=== PATIENT | male | born 1935 | race Caucasian/White ===

== ENCOUNTER 2016-06-23 13:53 | Inpatient (IN) | payer OTHER ==
[2016-06-23] MEDS ORDERED: SODIUM CHLORIDE 0.9% 1000 ML INFUS.BAG IV PRN (14:29)
[2016-06-23 14:54] LABS: BASOPHIL 0.5 % (0-2.0); EOSINOPHIL 0.4 % (0-4.5); MCH 30.2 pg (25.7-33.7); MCHC 32.4 g/dl (32.0-35.9); MEAN CELL VOLUME 93.2 fl (80-96); MEAN PLT VOLUME 10.4 fl (7.5-11.1); NEUTROPHILS 74.8 % (42.8-82.8); PLATELET COUNT 171 K/MM3 (134-434); RDW 13.4 % (11.9-15.9); WHITE BLOOD COUNT 8.2 K/mm3 (4.0-10.0)
[2016-06-23 15:19] LABS: VENOUS BLOOD GAS HCO3 20.5 meq/L (22-29)
[2016-06-23 15:20] LABS: VENOUS PH 7.25 (7.31-7.41)
[2016-06-23 15:21] LABS: INR 0.99 (0.82-1.09); PROTHROMBIN TIME (PATIENT) 10.9 SEC (9.98-11.88)
[2016-06-23 15:24] LABS: ACTIVATED PTT 27.7 SECONDS (26.9-34.4)
[2016-06-23 15:36] LABS: ALBUMIN 3.3 g/dl (3.4-5.0); CALCIUM 8.8 mg/dL (8.5-10.1); CREATININE 3.3 mg/dL (0.7-1.3)
[2016-06-23 15:40] LABS: BILIRUBIN,TOTAL 0.9 mg/dL (0.2-1.0); TOT PROT 7.2 g/dl (6.4-8.2); TROPONIN I 0.04 ng/ml (0.00-0.05)
[2016-06-23] MEDS ORDERED: INSULIN REGULAR HUMAN 100 UNITS/ML *VIAL IVPUSH ONE (15:54)
--- NOTE | 2016-06-23 16:15 | PDOC ---
History of Present Illness <Karen James - Last Filed: 06/23/16 16:20> - General History Source: EMS, [facility] Records Exam Limitations: Clinical Condition - History of Present Illness Initial Comments: 06/23/16 17:22 80-year-old male with history of advanced Parkinson's disease, dementia, hypertension, CAD, glaucoma, and diabetes brought in by EMS from [facility] for altered mental status and elevated BGM. Patient is unable to cooperate with the detailed history of present illness due to advanced dementia EMS did not provide history of fever/chills/cough/vomiting/diarrhea/melena/ bright red blood per rectum. Patient is a DNR/DNR. REVIEW OF SYSTEMS Unable to obtain. EXAMINATION CONSTITUTIONAL: Awake, unresponsive, nonverbal, frail-appearing; in no apparent distress HEAD: Normocephalic; atraumatic EYES: PERRL; conjunctiva are pink; there is no scleral icterus; ENMT: External appears normal; mucous membranes are dry NECK: Patient is contracted with neck extension; non-tender; no cervical lymphadenopathy CARD: Normal S1, S2; 2/6 se murmur, no rubs, or gallops RESP: Normal chest excursion with respiration; breath sounds clear and equal bilaterally; no wheezes, rhonchi, or rales ABD: Soft, non-distended; non-tender; no palpable organomegaly, no palpable hernias EXT: Bilateral flexion contraction to the upper extremities with a resting left upper extremity tremor SKIN: Warm, dry, no petechia; + stage II sacral decubitus ulcer NEURO: Awake, unresponsive, nonverbal, moans to sternal rub, localizes to painful stimuli with right upper extremity only. <Manuel Stratton - Last Filed: 06/23/16 17:39> - General Chief Complaint: Blood Sugar Problem Stated Complaint: UNRESPONSIVE Time Seen by Provider: 06/23/16 14:20 Past History <Karen James - Last Filed: 06/23/16 16:20> - Psycho/Social/Smoking Cessation Hx Suicidal Ideation: No Smoking History: Unknown if ever smoked <Manuel Stratton - Last Filed: 06/23/16 17:39> - Past Medical History Allergies/Adverse Reactions: Allergies Allergy/AdvReac Type Severity Reaction Status Date / Time No Known Allergies Allergy Verified 06/23/16 16:14 Home Medications: Ambulatory Orders Baclofen [Lioresal -] 10 mg PO BID 06/23/16 Carbidopa/Levodopa [Carbidopa-Levodopa 25-100 Tab] 1 each PO QID 06/23/16 Insulin (Novolog) [Novolog] 8 units SQ HS 06/23/16 Insulin Aspart [Novolog] 100 unit SQ ACHS 06/23/16 Lisinopril [Prinivil] 20 mg PO DAILY 06/23/16 Nifedipine ER [Procardia Xl -] 60 mg PO DAILY 06/23/16 Pantoprazole Sodium [Protonix] 40 mg PO DAILY 06/23/16 Polyethylene Glycol 3350 [Miralax (For Bowel Prep) -] 17 gm PO HS 06/23/16 Silver Sulfadiazine [Silvadene] 1 applic TP DAILY 06/23/16 *Physical Exam - Vital Signs Last Vital Signs Temp Pulse Resp BP Pulse Ox 96.0 F L 75 24 84/44 100 06/23/16 14:00 06/23/16 14:00 06/23/16 14:00 06/23/16 14:00 06/23/16 14:00 <Karen James - Last Filed: 06/23/16 16:20> - Vital Signs Last Vital Signs Temp Pulse Resp BP Pulse Ox 96.0 F L 75 24 84/44 100 06/23/16 14:00 06/23/16 14:00 06/23/16 14:00 06/23/16 14:00 06/23/16 14:00 <Manuel Stratton - Last Filed: 06/23/16 17:39> Heart Score/ECG Review - ECG Intrepretation Comment:: 06/23/16 16:21 Vent rate: 66 bpm VA interval: 142 ms QRS duration: 94 ms Normal sinus rhythm Inferior infarct, age undetermined Anterior infarct, age undetermined <Karen James - Last Filed: 06/23/16 16:20> ED Treatment Course - LABORATORY CBC & Chemistry Diagram: 06/23/16 14:30 06/23/16 14:30 - ADDITIONAL ORDERS Additional order review: Laboratory Results 06/23/16 06/23/16 06/23/16 15:15 14:30 14:30 INR 0.99 PTT (Actin FS) 27.7 VBG pH 7.25 L POC VBG pCO2 48.6 POC VBG pO2 105.0 H Sodium 142 Potassium 4.4 Chloride 106 Carbon Dioxide 21 Anion Gap 15 BUN 73 H Creatinine 3.3 H Creat Clearance w eGFR 18.22 Random Glucose 867 H* Calcium 8.8 Total Bilirubin 0.9 AST 31 ALT 13 Alkaline Phosphatase 109 Creatine Kinase 754 H Troponin I 0.04 Total Protein 7.2 Albumin 3.3 L Blood Type Antibody Screen 06/23/16 14:29 INR PTT (Actin FS) VBG pH POC VBG pCO2 POC VBG pO2 Sodium Potassium Chloride Carbon Dioxide Anion Gap BUN Creatinine Creat Clearance w eGFR Random Glucose Calcium Total Bilirubin AST ALT Alkaline Phosphatase Creatine Kinase Troponin I Total Protein Albumin Blood Type O NEGATIVE Antibody Screen Negative 06/23/16 14:30 RBC 3.83 L MCV 93.2 MCHC 32.4 RDW 13.4 MPV 10.4 Neutrophils % 74.8 Lymphocytes % 18.7 Monocytes % 5.6 Eosinophils % 0.4 Basophils % 0.5 <Karen James - Last Filed: 06/23/16 16:20> - LABORATORY CBC & Chemistry Diagram: 06/23/16 14:30 06/23/16 14:30 - ADDITIONAL ORDERS Additional order review: Laboratory Results 06/23/16 06/23/16 06/23/16 15:15 14:30 14:30 INR 0.99 PTT (Actin FS) 27.7 VBG pH 7.25 L POC VBG pCO2 48.6 POC VBG pO2 105.0 H Sodium 142 Potassium 4.4 Chloride 106 Carbon Dioxide 21 Anion Gap 15 BUN 73 H Creatinine 3.3 H Creat Clearance w eGFR 18.22 Random Glucose 867 H* Calcium 8.8 Total Bilirubin 0.9 AST 31 ALT 13 Alkaline Phosphatase 109 Creatine Kinase 754 H Troponin I 0.04 Total Protein 7.2 Albumin 3.3 L Blood Type Antibody Screen 06/23/16 14:29 INR PTT (Actin FS) VBG pH POC VBG pCO2 POC VBG pO2 Sodium Potassium Chloride Carbon Dioxide Anion Gap BUN Creatinine Creat Clearance w eGFR Random Glucose Calcium Total Bilirubin AST ALT Alkaline Phosphatase Creatine Kinase Troponin I Total Protein Albumin Blood Type O NEGATIVE Antibody Screen Negative 06/23/16 14:30 RBC 3.83 L MCV 93.2 MCHC 32.4 RDW 13.4 MPV 10.4 Neutrophils % 74.8 Lymphocytes % 18.7 Monocytes % 5.6 Eosinophils % 0.4 Basophils % 0.5 - RADIOLOGY Radiology Studies Ordered: Category Date Time Status CHEST X-RAY PORTABLE* [RAD] Stat Radiology 06/23/16 14:29 Completed <Manuel Stratton - Last Filed: 06/23/16 17:39> Medical Decision Making - Medical Decision Making 06/23/16 17:27 Patient is 80-year-old male with multiple comorbidities, advanced dementia brought in from [facility] for elevated blood sugar. In the ER, patient is awake, nonverbal, unresponsive, moaning coherently. Patient's rectal temperature is noted to be 96. There is no evidence of soft tissue infection. Lungs are noted to be clear. Chest x-ray reveals no evidence of infiltrate or effusion. CBC is within normal limit. CMP revealed significantly elevated blood glucose, mildly increased anion gap and bicarbonate of 21. Lactic acid is noted to be 5.6. BUN and creatinine are also elevated without previous values for comparison. I suspect hyperosmolar state with severe dehydration. Patient received a fluid bolus of normal saline-1000 mL. Will initiate a maintenance drip of normal saline at 125 mL an hour. Will also administer insulin iv and sq. There is no indication for initiating of mental and drip is at this time as I do not suspect DKA. Patient will be admitted to [facility] for further hydration. Patient is DNR/DNR. <Manuel Stratton - Last Filed: 06/23/16 17:39> *DC/Admit/Observation/Transfer - Attestations Scribe Attestion: 06/23/16 16:20 Documentation prepared by Karen James, acting as medical educator for Manuel Stratton MD. <Karen James - Last Filed: 06/23/16 16:20> - Discharge Dispostion Admit: Yes <Manuel Stratton - Last Filed: 06/23/16 17:39> Diagnosis at time of Disposition: Diabetes mellitus with hyperosmolar coma, Hyperglycemia, Dehydration - Discharge Dispostion Condition at time of disposition: Fair - Referrals Referrals: Franky Carranza [Primary Care Provider] -
[2016-06-23 16:37] LABS: URINE APPEARANCE SLCLOUDY; URINE BILIRUBIN NEGATIVE (NEGATIVE); URINE BLOOD NEGATIVE (NEGATIVE); URINE COLOR LTYELLOW; URINE GLUCOSE (UA) 3+ (NEGATIVE); URINE KETONE NEGATIVE (NEGATIVE); URINE LEUK ESTERASE NEGATIVE (NEGATIVE); URINE NITRITE NEGATIVE (NEGATIVE); URINE UROBILINOGEN NEGATIVE E.U./dl (0.2-1.0)
[2016-06-23 16:38] LABS: URINE PROTEIN 2+ (NEGATIVE)
[2016-06-23 16:40] LABS: URINE MUCUS RARE; URINE RBC <1 /hpf (0-3); URINE WBC 1 /hpf (3-5)
[2016-06-23] MEDS ORDERED: SODIUM CHLORIDE 1,000 ML IV SCH (17:45)
[2016-06-23 19:01] LABS: CALCIUM 8.9 mg/dL (8.5-10.1); CREATININE 3.5 mg/dL (0.7-1.3)
[2016-06-23] MEDS ORDERED: BACLOFEN 10 MG TABLET (FP) PO SCH (22:00)
--- NOTE | 2016-06-23 22:59 | PDOC ---
ED Treatment Course - LABORATORY CBC & Chemistry Diagram: 06/23/16 14:30 06/23/16 22:40 - ADDITIONAL ORDERS Additional order review: Laboratory Results 06/23/16 06/23/16 06/23/16 17:50 17:50 17:50 INR PTT (Actin FS) VBG pH POC VBG pCO2 POC VBG pO2 Sodium 148 H Potassium 4.1 Chloride 110 H Carbon Dioxide 16 L D Anion Gap 22 H BUN 72 H Creatinine 3.5 H Creat Clearance w eGFR Random Glucose 577 H* D Lactic Acid 8.563 H* Calcium 8.9 Total Bilirubin AST ALT Alkaline Phosphatase Creatine Kinase Creatine Kinase Index CK-MB (CK-2) CK-MB (CK-2) Rel Index Troponin I Total Protein Albumin Urine Color Urine Appearance Urine pH Ur Specific [place] Urine Protein Urine Glucose (UA) Urine Ketones Urine Blood Urine Nitrite Urine Bilirubin Urine Urobilinogen Ur Leukocyte Esterase Urine RBC Urine WBC Ur Epithelial Cells Urine Mucus Blood Type O NEGATIVE Antibody Screen 06/23/16 06/23/16 06/23/16 16:25 15:15 14:30 INR PTT (Actin FS) VBG pH 7.25 L POC VBG pCO2 48.6 POC VBG pO2 105.0 H Sodium Potassium Chloride Carbon Dioxide Anion Gap BUN Creatinine Creat Clearance w eGFR Random Glucose Lactic Acid Calcium Total Bilirubin AST ALT Alkaline Phosphatase Creatine Kinase Creatine Kinase Index CK-MB (CK-2) CK-MB (CK-2) Rel Index Cancelled Troponin I Total Protein Albumin Urine Color Ltyellow Urine Appearance Slcloudy Urine pH 5.0 Ur Specific [place] 1.025 Urine Protein 2+ H Urine Glucose (UA) 3+ H Urine Ketones Negative Urine Blood Negative Urine Nitrite Negative Urine Bilirubin Negative Urine Urobilinogen Negative Ur Leukocyte Esterase Negative Urine RBC <1 Urine WBC 1 Ur Epithelial Cells Rare Urine Mucus Rare Blood Type Antibody Screen 06/23/16 06/23/16 06/23/16 14:30 14:30 14:29 INR 0.99 PTT (Actin FS) 27.7 VBG pH POC VBG pCO2 POC VBG pO2 Sodium 142 Potassium 4.4 Chloride 106 Carbon Dioxide 21 Anion Gap 15 BUN 73 H Creatinine 3.3 H Creat Clearance w eGFR 18.22 Random Glucose 867 H* Lactic Acid Calcium 8.8 Total Bilirubin 0.9 AST 31 ALT 13 Alkaline Phosphatase 109 Creatine Kinase 754 H Creatine Kinase Index 0.5 CK-MB (CK-2) 3.802 H CK-MB (CK-2) Rel Index Troponin I 0.04 Total Protein 7.2 Albumin 3.3 L Urine Color Urine Appearance Urine pH Ur Specific [place] Urine Protein Urine Glucose (UA) Urine Ketones Urine Blood Urine Nitrite Urine Bilirubin Urine Urobilinogen Ur Leukocyte Esterase Urine RBC Urine WBC Ur Epithelial Cells Urine Mucus Blood Type O NEGATIVE Antibody Screen Negative 06/23/16 14:26 INR PTT (Actin FS) VBG pH POC VBG pCO2 POC VBG pO2 Sodium Potassium Chloride Carbon Dioxide Anion Gap BUN Creatinine Creat Clearance w eGFR Random Glucose Lactic Acid 5.787 H* Calcium Total Bilirubin AST ALT Alkaline Phosphatase Creatine Kinase Creatine Kinase Index CK-MB (CK-2) CK-MB (CK-2) Rel Index Troponin I Total Protein Albumin Urine Color Urine Appearance Urine pH Ur Specific [place] Urine Protein Urine Glucose (UA) Urine Ketones Urine Blood Urine Nitrite Urine Bilirubin Urine Urobilinogen Ur Leukocyte Esterase Urine RBC Urine WBC Ur Epithelial Cells Urine Mucus Blood Type Antibody Screen 06/23/16 14:30 RBC 3.83 L MCV 93.2 MCHC 32.4 RDW 13.4 MPV 10.4 Neutrophils % 74.8 Lymphocytes % 18.7 Monocytes % 5.6 Eosinophils % 0.4 Basophils % 0.5 - Medications Given in the ED: ED Medications Discontinued Medications Generic Name Dose Route Start Last Admin Trade Name Freq PRN Reason Stop Dose Admin Insulin Human Regular 10 units 06/23/16 15:54 06/23/16 16:02 Novolin R Vial *Ivpush / Er / Icu Only* IVPUSH 06/23/16 15:55 10 units ONCE ONE Administration Medical Decision Making - Medical Decision Making 06/23/16 22:58 dr. ceja requested icu consultation. case was d/w zhang abernathy from icu - agree with icu adimssion. patient will be upgraded to ICU for further mangaement notified from lab that lactic acid increasing from 5-8 will continue hydration no evidence of sepsis/infectious source pts original labs showed no signs of dka - suspect pts anion gap secondary to sepsis vs dka - will not start insulin gtt for now - will continue hydration Case discussed in detail with admitting physician including history, physical exam and ancillary studies. Admitting physician has assumed care for the patient, will follow all pending diagnostics and will complete the evaluation and treatment. *DC/Admit/Observation/Transfer Diagnosis at time of Disposition: Hyperosmolar nonketotic coma in diabetes, Hyperglycemia, Dehydration - Discharge Dispostion Condition at time of disposition: Critical Admit: Yes
[2016-06-23] MEDS ORDERED: INSULIN DETEMIR 100 UNITS/ML MDV SQ ONE (23:05)
[2016-06-23] MEDS: HEPARIN NA (PORCINE) 5,000 UNITS/ML 1ML VIAL SQ SCH (23:08)
[2016-06-23] MEDS: INSULIN DETEMIR 100 UNITS/ML MDV SQ SCH (23:08)
[2016-06-23] MEDS ORDERED: CARBIDOPA/LEVODOPA 25/100 TABLET (FP) ONE (23:10)
[2016-06-23] MEDS: CARBIDOPA/LEVODOPA 25/100 TABLET (FP) PO SCH (23:15)
--- NOTE | 2016-06-23 23:36 | CONSULT ---
Consult Consult Specialty:: Pulm/CC - History of Present Illness History of Present Illness: Pt is an 80yr old man with PMHx of HTN, CAD, DM, Parkinson's disease, dementia and glaucoma. He presents to the ER from [facility] with CC of AMS and elevated glucose. In the ER pt with serum glucose 867, CK 754, lactic acid 5.787 (--> 8.563) and BUN/Cr 73/3.3. Unable to obtain history due to mental status. Pt assessed in the ER. Pt arousable but nonverbal (baseline unknown), vital signs in chart reviewed. - History Source History Provided By: Medical Record Limitations to Obtaining History: Clinical Condition - Smoking History Smoking history: Unknown if ever smoked Home Medications - Allergies Allergies/Adverse Reactions: Allergies Allergy/AdvReac Type Severity Reaction Status Date / Time No Known Allergies Allergy Verified 06/23/16 16:14 - Home Medications Home Medications: Ambulatory Orders Baclofen [Lioresal -] 10 mg PO BID 06/23/16 Carbidopa/Levodopa [Carbidopa-Levodopa 25-100 Tab] 1 each PO QID 06/23/16 Insulin (Novolog) [Novolog] 8 units SQ HS 06/23/16 Insulin Aspart [Novolog] 100 unit SQ ACHS 06/23/16 Lisinopril [Prinivil] 20 mg PO DAILY 06/23/16 Nifedipine ER [Procardia Xl -] 60 mg PO DAILY 06/23/16 Pantoprazole Sodium [Protonix] 40 mg PO DAILY 06/23/16 Polyethylene Glycol 3350 [Miralax (For Bowel Prep) -] 17 gm PO HS 06/23/16 Silver Sulfadiazine [Silvadene] 1 applic TP DAILY 06/23/16 Family Disease History - Family Disease History Family History: Unable to Obtain Review of Systems Unable to obtain ROS, reason: JOSE Physical Exam Vital Signs: Vital Signs Period Temp Pulse Resp BP Sys/Dumont Pulse Ox Last 24 Hr 96.0 F-96.3 F 63-75 18-24 84-112/44-59 100-100 Intake & Output 06/21/16 06/22/16 06/23/16 06/24/16 23:59 23:59 23:59 23:59 Output Total 200 Balance -200 Weight 140 lb Constitutional: Yes: Thin Eyes: Yes: Other (resistant to exam, no gross abnormality noted) HENT: Yes: Other (dry lips) Neck: Yes: WNL Cardiovascular: Yes: S1, S2 Respiratory: Yes: Diminished, Other (limited exam, no adventitious breath sounds appreciated) Gastrointestinal: Yes: Normal Bowel Sounds ...Rectal Exam: Yes: Deferred Renal/: Yes: Marquez Present (yellow output) Musculoskeletal: Yes: Other (some contraction) Extremities: Yes: Other (bilateral heel lifts) Edema: No Peripheral Pulses WNL: Yes (+2 bilateral pedal pulses) Integumentary: Yes: Other (appears dry) Neurological: Yes: Unresponsive, Other (arousable, nonverbal) Labs: Abnormal Lab Results 06/23/16 06/23/16 06/23/16 14:26 14:30 14:30 RBC 3.83 L Hgb 11.6 L VBG pH POC VBG pO2 Sodium Chloride Carbon Dioxide Anion Gap BUN 73 H Creatinine 3.3 H Random Glucose 867 H* Lactic Acid 5.787 H* Creatine Kinase 754 H CK-MB (CK-2) 3.802 H Albumin 3.3 L Urine Protein Urine Glucose (UA) 06/23/16 06/23/16 06/23/16 15:15 16:25 17:50 RBC Hgb VBG pH 7.25 L POC VBG pO2 105.0 H Sodium 148 H Chloride 110 H Carbon Dioxide 16 L D Anion Gap 22 H BUN 72 H Creatinine 3.5 H Random Glucose 577 H* D Lactic Acid Creatine Kinase CK-MB (CK-2) Albumin Urine Protein 2+ H Urine Glucose (UA) 3+ H 06/23/16 06/23/16 06/23/16 17:50 22:40 22:40 RBC Hgb VBG pH POC VBG pO2 Sodium 147 H Chloride 110 H Carbon Dioxide Anion Gap BUN 71 H Creatinine 3.2 H Random Glucose 566 H* Lactic Acid 8.563 H* 2.256 H* Creatine Kinase CK-MB (CK-2) Albumin Urine Protein Urine Glucose (UA) Imaging - Results Chest X-ray: Report Reviewed, Image Reviewed Assessment/Plan Pt is an 80yr old man with PMHx of HTN, CAD, DM, Parkinson's disease, dementia and glaucoma. Now in the ICU for management of uncontrolled glucose, lactic acidosis and ams. Pulm: -O2 support prn for sat >94% -Nebulizers prn -f/u abg ID: Lactic acidosis. WBC wnl, afebrile -f/u cultures -Will monitor off antibiotics for now -Trend lactic acid (repeat 8.56-->2.25) Neuro: AMS, baseline unknown -f/u head CT -Continue home carbidopa-levodopa -Pain management Endo: Uncontrolled glucose -BGM -Glycemic control -Will start pt on Levemir in addition to sliding scale -f/u A1c Renal: Elevated BUN/Cr, likely chronic. Baseline unknown -IVF as tolerated -I/Os -Monitor BUN/Cr -Renal dose medication -Replete electrolytes PRN Cardio -BP control Skin: -Continue heel lifts -Wound care Prophylactic -DVT -Continue home PPI
[2016-06-23 23:37] LABS: CALCIUM 8.5 mg/dL (8.5-10.1); CREATININE 3.2 mg/dL (0.7-1.3)
[2016-06-24] MEDS ORDERED: INSULIN REGULAR HUMAN 100 UNITS/ML *VIAL IVPUSH ONE (03:32)
[2016-06-24] MEDS ORDERED: SODIUM CHLORIDE 250 ML IV STA ×2 (03:33→04:29)
[2016-06-24] MEDS ORDERED: LACTATED RINGERS SOLUTION 250 ML IV ONE ×2 (03:45→04:02)
[2016-06-24] MEDS: POLYETHYLENE GLYCOL 3350 255 GM BTL PO SCH ×2 (04:28→22:15)
[2016-06-24] MEDS: INSULIN SLIDING SCALE (NOVOLOG) 1 VIAL SQ SCH ×5 (04:28→22:16)
[2016-06-24] MEDS: LACTATED RINGERS SOLUTION 1,000 ML IV SCH (04:30)
[2016-06-24 04:47] LABS: BASOPHIL 0.2 % (0-2.0); MCH 29.1 pg (25.7-33.7); MCHC 32.4 g/dl (32.0-35.9); MEAN CELL VOLUME 89.8 fl (80-96); MEAN PLT VOLUME 10.1 fl (7.5-11.1); NEUTROPHILS 86.2 % (42.8-82.8); PLATELET COUNT 145 K/MM3 (134-434); RDW 13.2 % (11.9-15.9); WHITE BLOOD COUNT 7.6 K/mm3 (4.0-10.0)
[2016-06-24 04:56] VITALS: BMI 20.4
[2016-06-24 05:13] LABS: ACETONE SERUM NEGATIVE (NEGATIVE)
[2016-06-24 05:14] LABS: BILIRUBIN,TOTAL 0.8 mg/dL (0.2-1.0); CALCIUM 7.8 mg/dL (8.5-10.1); CREATININE 2.9 mg/dL (0.7-1.3); TOT PROT 6.3 g/dl (6.4-8.2)
[2016-06-24 05:29] LABS: TROPONIN I 0.05 ng/ml (0.00-0.05)
[2016-06-24 05:33] LABS: MAGNESIUM 2.3 mg/dL (1.8-2.4); PHOSPHOROUS 2.8 mg/dL (2.5-4.9)
[2016-06-24] MEDS ORDERED: SODIUM CHLORIDE 500 ML IV STA (05:37)
[2016-06-24] MEDS ORDERED: INSULIN REGULAR HUMAN 100 UNITS/ML *VIAL ONE (05:40)
[2016-06-24] MEDS: INSULIN REGULAR 100 UNITS in SODIUM CHLORIDE 99 ML IVPB SCH (06:02)
[2016-06-24 06:11] LABS: ARTERIAL BLD GAS O2 SATURATION 98.5 % (90-98.9); ARTERIAL BLOOD GAS BASE EXCESS -3.7 meq/l (-2-2); ARTERIAL BLOOD GAS HCO3 20.8 meq/L (22-26); ARTERIAL BLOOD GAS pH 7.36 (7.35-7.45)
[2016-06-24 06:12] LABS: ALLENS TEST POSITIVE; ART PUNCT SITE RIGHT RADIAL; LPM/O2% 21%; PT. ON O2? NO; TYPE OF O2 ROOM AIR
[2016-06-24] MEDS: DEXTROSE 5%-0.45% SALINE 1,000 ML IV SCH (08:30)
[2016-06-24 08:54] LABS: CALCIUM 7.8 mg/dL (8.5-10.1); CREATININE 2.7 mg/dL (0.7-1.3)
--- NOTE | 2016-06-24 08:54 | HP ---
Admitting History and Physical - Primary Care Physician PCP: Richard Monroe - Admission Chief Complaint: SENT FROM [facility] TO ELEVATED BGM, WEAKNESS History of Present Illness: Pt is an 80yr old man with PMHx of HTN, CAD, DM, Parkinson's disease, dementia and glaucoma. He presents to the ER from [facility] with CC of AMS and elevated glucose. In the ER pt with serum glucose 867, CK 754, lactic acid 5.787 (--> 8.563) and BUN/Cr 73/3.3. Unable to obtain history due to mental status. Pt assessed in the ER. Pt arousable but nonverbal (baseline), vital signs in chart reviewed. History Source: Medical Record, Transfer Record Limitations to Obtaining History: Clinical Condition, Dementia, Physical Impairment - Past Medical History SUPERVISOR AREA: Yes: Alzheimer's Cardiovascular: Yes: HTN Pulmonary: Yes: COPD Endocrine: Yes: Diabetes Mellitus - Advance Directives Advance Directives: Yes: DNR - Smoking History Smoking history: Unknown if ever smoked Have you smoked in the past 12 months: No Home Medications - Allergies Allergies/Adverse Reactions: Allergies Allergy/AdvReac Type Severity Reaction Status Date / Time No Known Allergies Allergy Verified 06/23/16 16:14 - Home Medications Home Medications: Ambulatory Orders Baclofen [Lioresal -] 10 mg PO BID 06/23/16 Carbidopa/Levodopa [Carbidopa-Levodopa 25-100 Tab] 1 each PO QID 06/23/16 Insulin (Novolog) [Novolog] 8 units SQ HS 06/23/16 Insulin Aspart [Novolog] 100 unit SQ ACHS 06/23/16 Lisinopril [Prinivil] 20 mg PO DAILY 06/23/16 Nifedipine ER [Procardia Xl -] 60 mg PO DAILY 06/23/16 Pantoprazole Sodium [Protonix] 40 mg PO DAILY 06/23/16 Polyethylene Glycol 3350 [Miralax (For Bowel Prep) -] 17 gm PO HS 06/23/16 Silver Sulfadiazine [Silvadene] 1 applic TP DAILY 06/23/16 Review of Systems - Review of Systems Constitutional: reports: Loss of Appetite, Malaise Eyes: reports: No Symptoms HENT: reports: No Symptoms Neck: reports: No Symptoms Cardiovascular: reports: Palpitations Respiratory: reports: No Symptoms Gastrointestinal: reports: No Symptoms Genitourinary: reports: Incontinence Musculoskeletal: reports: Muscle Weakness, Other Integumentary: reports: Other Neurological: reports: Pre-Existing Deficit Endocrine: reports: No Symptoms Hematology/Lymphatic: reports: No Symptoms Physical Examination Vital Signs: Vital Signs Temperature 98.9 F 06/24/16 04:40 Pulse Rate 65 06/24/16 04:40 Respiratory Rate 14 06/24/16 04:59 Blood Pressure 129/59 06/24/16 04:40 O2 Sat by Pulse Oximetry (%) 98 06/24/16 04:59 Constitutional: Yes: Moderate Distress Eyes: Yes: WNL HENT: Yes: WNL Neck: Yes: WNL Cardiovascular: Yes: Pulse Irregular Respiratory: Yes: CTA Bilaterally Gastrointestinal: Yes: WNL, Soft Renal/: Yes: Incontinence Musculoskeletal: Yes: Muscle Weakness Extremities: Yes: Other Edema: No Peripheral Pulses WNL: Yes Integumentary: Yes: Other Wound/Incision: Yes: Dressing Dry and Intact (HEELS B/L PADDING) Neurological: Yes: Lethargy, Pre-Existing Deficit, Weakness, Other ...Motor Strength: LUE, LLE, RUE, RLE Psychiatric: Yes: Other Labs: CBC, BMP 06/24/16 04:00 Imaging - Results Chest X-ray: Report Reviewed Assessment/Plan Pt is an 80yr old man with PMHx of HTN, CAD, DM, Parkinson's disease, dementia and glaucoma. He presents to the ER from [facility] with CC of AMS and elevated glucose. In the ER pt with serum glucose 867, CK 754, lactic acid 5.787 (--> 8.563) and BUN/Cr 73/3.3. Unable to obtain history due to mental status. Pt assessed in the ER. Pt arousable but nonverbal (baseline), vital signs in chart reviewed. DKA/HYPEROSMOLAR SYNDROME : IVF, SSI, BGM Q2HRS, ACETONE CHECK? ENDOCRINE CONSULT ICU ADMISSION ACUTE RENAL FAILURE: RENAL CONSULT HOLD ANY NEPHROTOXIC MEDICATIONS IVF SEPSIS: LACTIC ACID ELEVATE BLOOD AND URINE CULTURES IV ABX IVF CVA/DEMENTIA: BASELINE AT THIS TIME NEUROCHECKS
[2016-06-24 09:08] LABS: TROPONIN I 0.08 ng/ml (0.00-0.05)
--- NOTE | 2016-06-24 09:18 | PN ---
Progress Note, Physician Chief Complaint: ID Admitted hyperosmolar BS 867 Temp was low - Current Medication List Current Medications: Active Medications Carbidopa/Levodopa (Sinemet 25/100 -) 1 each PO QID VERÓNICA Last Admin: 06/23/16 23:15 Dose: 1 each Heparin Sodium (Porcine) (Heparin -) 5,000 unit SQ BID VERÓNICA Last Admin: 06/23/16 23:08 Dose: 5,000 unit Lactated Ringer's (Lactated Ringers Solution) 1,000 mls @ 125 mls/hr IV ASDIR VERÓNICA Last Admin: 06/24/16 04:30 Dose: 125 mls/hr Insulin Human Regular 100 (units/ Sodium Chloride) 100 mls @ 5.74 mls/hr IVPB TITR VERÓNICA; 0.1 UNITS/KG/HR PRN Reason: Protocol Last Titration: 06/24/16 06:35 Dose: 0.08 units/kg/hr Dextrose/Sodium Chloride (D5-1/2ns -) 1,000 mls @ 100 mls/hr IV ASDIR VERÓNICA Influenza Virus Vaccine (Fluvirin) 45 mcg IM .ONCE ONE Stop: 06/24/16 10:01 Insulin Aspart (Novolog Vial Sliding Scale -) 1 vial SQ ACHS VERÓNICA PRN Reason: Protocol Last Admin: 06/24/16 07:01 Dose: Not Given Insulin Detemir (Levemir Vial) 10 units SQ BID VERÓNICA Last Admin: 06/23/16 23:08 Dose: 10 units Nifedipine (Procardia Xl -) 60 mg PO DAILY VERÓNICA Pantoprazole Sodium (Protonix -) 40 mg PO DAILY VERÓNICA Pneumococcal 13-Valent Conj Vacc (Prevnar 13 Syringe -) 0.5 ml IM .ONCE ONE Stop: 06/24/16 10:01 Polyethylene Glycol (Miralax (For Bowel Prep) -) 17 gm PO HS VERÓNICA Last Admin: 06/24/16 04:28 Dose: Not Given Silver Sulfadiazine (Silvadene -) 1 applic TP DAILY VERÓNICA Sodium Chloride (Normal Saline -) 500 ml IV Q20M PRN PRN Reason: MAP<65mm Hg OR SBP <90 - Objective Vital Signs: Vital Signs Temperature 98.9 F 06/24/16 04:40 Pulse Rate 65 06/24/16 04:40 Respiratory Rate 14 06/24/16 04:59 Blood Pressure 129/59 06/24/16 04:40 O2 Sat by Pulse Oximetry (%) 98 06/24/16 04:59 Cardiovascular: Yes: S1, S2 Respiratory: Yes: WNL, Regular, CTA Bilaterally Gastrointestinal: Yes: Soft. No: Tenderness Edema: No Integumentary: Yes: Other (Stage 2 decubitus ulcer) Labs: CBC, BMP 06/24/16 04:00 06/24/16 08:05 INR, PTT INR 0.99 (0.82-1.09) 06/23/16 14:30 Assessment/Plan Microbiology 06/24/16 04:00 Nasopharyngeal Swab Influenza Types A,B Antigen (NASIMA) - Final 06/24/16 04:00 Nasopharyngeal Swab - Final Laboratory Tests 06/23/16 06/23/16 06/24/16 14:30 16:25 04:00 WBC 7.6 Plt Count 145 INR 0.99 BUN Lactic Acid Urine RBC <1 Urine WBC 1 06/24/16 06/24/16 04:20 08:05 WBC Plt Count INR BUN 62 H Lactic Acid 1.512 Urine RBC Urine WBC Assessment Poorly controlled DM NO evidence of infection /sepsis Decubitus ulcer sacrum but does not appear grossly infected Plan Observe off antibiotics pending c/s Rik PHAN
[2016-06-24] MEDS: CARBIDOPA/LEVODOPA 25/100 TABLET (FP) PO SCH ×4 (09:36→22:16)
[2016-06-24] MEDS: SILVER SULFADIAZINE 1% TOP CREAM 50 GM JAR TP SCH (09:43)
[2016-06-24] MEDS: INSULIN DETEMIR 100 UNITS/ML MDV SQ SCH (09:45)
[2016-06-24] MEDS ORDERED: PNEUMOC 13-VAL CONJ-DIP CRM/PF 0.5 ML DISP.SYRIN IM ONE (10:00)
[2016-06-24] MEDS ORDERED: INFLUENZA VACCINE 45 MCG/0.5 ML (MDV 16-17) IM ONE (10:00)
[2016-06-24] MEDS: PANTOPRAZOLE 40 MG TABLET (FP) PO SCH (10:34)
[2016-06-24] MEDS: NIFEdipine E.R 60 MG TABLET (UD) PO SCH (10:35)
[2016-06-24] MEDS: HEPARIN NA (PORCINE) 5,000 UNITS/ML 1ML VIAL SQ SCH ×2 (10:40→22:15)
--- NOTE | 2016-06-24 10:53 | CONS ---
DATE OF CONSULTATION: DATE OF DICTATION: 06/24/2016 HISTORY: This is a 80-year-old demented patient from the care home, brought, according to the notes, for altered mental status and elevated blood sugar. In fact, when he arrived in the emergency room, his blood sugar was over 800, and he is known to be diabetic. His temperature was low on admission, and I assume this being the reason why I am asked to see him, with consideration of the possibility of sepsis. Currently his temperature is normal. He is alert and can offer no distress. He is DNR and DNI. PAST MEDICAL HISTORY: Includes Parkinson's disease, hypertension, coronary artery disease, dementia, glaucoma, and diabetes mellitus. MEDICATIONS: Insulin, lisinopril, nifedipine, Protonix. ALLERGIES: None known. SOCIAL HISTORY: Unknown if ever smoked or drank. FAMILY HISTORY: Unobtainable. REVIEW OF SYSTEMS: Respiratory: No cough or shortness of breath. Cardiac: No chest pain, palpitations, syncope. Gastrointestinal: No abdominal pain, nausea, vomiting, blood per rectum, hematemesis. Genitourinary: Incontinent of urine. No gross hematuria reported. PHYSICAL EXAMINATION: General: He was an elderly male, alert, but unable to respond to questions. Vital Signs: His temperature was 98.9, pulse 65, blood pressure 130/60, respirations 14, O2 saturation 98%. Lungs: Clear to percussion and auscultation. Heart: S1, S2, regular rhythm without audible murmur. Abdomen: Soft, nontender, without hepatosplenomegaly. Extremities: Without clubbing, cyanosis, or edema. Skin: Revealed a stage II-III necrotic sacral ulcer. No fluctuance or wound drainage or cellulitis noted. LABORATORY: The white count is 7.6, hemoglobin 10.6, platelets of 145. No left shift is present. The INR is 0.99. ABG 7.36, 38, PO2 of 111 on room air. A BUN of 62, creatinine of 2.7. Glucose on admission 867. TNI 0.08. Urinalysis with 1 RBC, 1 WBC. Two sets of blood cultures thus far are no growth. Urine culture pending. Chest x-ray shows no acute infiltrate. ASSESSMENT: A 80-year-old diabetic male who presents with: 1. Hyperosmolar electrolyte imbalance. 2. Acute kidney injury. 3. Diabetes mellitus. PLAN: At this point I find no evidence of infection. He has a stage III sacral decubitus, but this does not look grossly infected. Cultures of blood are thus far no growth. For now would observe off of antibiotics pending final cultures. AGUSTÍN MICHAEL M.D. [id number]
--- NOTE | 2016-06-24 13:39 | CONSULT ---
Consult Consult Specialty:: Endocrinology for Dr Monge Referred by:: Dr Monroe Reason for Consultation:: Hyperglycemia - History of Present Illness Chief Complaint: AMS, Hyperglycemia History of Present Illness: This is a 80-year-old male with history of advanced Parkinson's disease, dementia, hypertension, CAD, glaucoma, and DM who was brought in by EMS from [facility] for altered mental status and elevated blood sugar. Patient was unable to cooperate with the detailed history of present illness due to advanced dementia. EMS did not provide history of fever/chills/cough/ vomiting/diarrhea/melena/bright red blood per rectum. Patient is a DNR/DNR. Pt currently awake, responsive but not able to give history. Family member at bedside. Pt has diabetes for many years and is on Insulin. She doesn't when he was started on it. Says pt recognizes family members. Admission blood sugar was 867 with CO2 of 21 and A gap of 15 and Lactic acid of 5.787. Pt treated with Insulin drip and Levemir with improvement in blood sugar. HbA1c is 10.2. Review of retirement chart shows that pt was on Lantus 6 units daily with Novolog coverage starting at 201. - History Source History Provided By: Family Member, Medical Record - Past Medical History DENTISTRY TEACHER: Yes: Alzheimer's Cardio/Vascular: Yes: HTN Pulmonary: Yes: COPD Endocrine: Yes: Diabetes Mellitus - Smoking History Smoking history: Unknown if ever smoked Have you smoked in the past 12 months: No Home Medications - Allergies Allergies/Adverse Reactions: Allergies Allergy/AdvReac Type Severity Reaction Status Date / Time No Known Allergies Allergy Verified 06/23/16 16:14 - Home Medications Home Medications: Ambulatory Orders Baclofen [Lioresal -] 10 mg PO BID 06/23/16 Carbidopa/Levodopa [Carbidopa-Levodopa 25-100 Tab] 1 each PO QID 06/23/16 Insulin (Novolog) [Novolog] 8 units SQ HS 06/23/16 Insulin Aspart [Novolog] 100 unit SQ ACHS 06/23/16 Lisinopril [Prinivil] 20 mg PO DAILY 06/23/16 Nifedipine ER [Procardia Xl -] 60 mg PO DAILY 06/23/16 Pantoprazole Sodium [Protonix] 40 mg PO DAILY 06/23/16 Polyethylene Glycol 3350 [Miralax (For Bowel Prep) -] 17 gm PO HS 06/23/16 Silver Sulfadiazine [Silvadene] 1 applic TP DAILY 06/23/16 Family Disease History - Family Disease History Family Disease History: Diabetes: Daughter Review of Systems Unable to obtain ROS, reason: Dementia AMS Physical Exam Vital Signs: Vital Signs Temperature 98.9 F 06/24/16 04:40 Pulse Rate 70 06/24/16 10:53 Respiratory Rate 14 06/24/16 09:00 Blood Pressure 129/59 06/24/16 04:40 O2 Sat by Pulse Oximetry (%) 100 06/24/16 10:53 Constitutional: Yes: No Distress, Calm Eyes: Yes: Conjunctiva Clear HENT: Yes: Atraumatic, Normocephalic Neck: Yes: Supple, Trachea Midline Cardiovascular: Yes: Regular Rate and Rhythm Respiratory: Yes: Regular, CTA Bilaterally Gastrointestinal: Yes: Normal Bowel Sounds, Soft Musculoskeletal: Yes: WNL Extremities: Yes: WNL Edema: No Neurological: Yes: Other (Awake, responds to verbal stimuli) Labs: CBC, BMP 06/24/16 04:00 06/24/16 08:05 Imaging - Results Chest X-ray: Report Reviewed Cat Scan: Report Reviewed (CT head negative) Assessment/Plan Hyperglycemic Hyperosmolar state Calculated S Osm 358 on admission, now normalized Decrease Levemir to 10 units daily Novolog coverage QACHS P.O intake good IV hydration Parkinson's disease Dementia HTN Lactic Acidosis
--- NOTE | 2016-06-24 13:43 | PN ---
Teaching Attending Note Name of Resident: Junior Reardon ATTENDING PHYSICIAN STATEMENT I saw and evaluated the patient. I reviewed the resident's note and discussed the case with the resident. I agree with the resident's findings and plan as documented. SUBJECTIVE: Patient seen and examined in the ICU. Lethargic but arousable. Maori speaking. Able to tolerate some PO intake for breakfast. Episodes of tachycardia. Intake & Output 06/21/16 06/22/16 06/23/16 06/24/16 23:59 23:59 23:59 23:59 Intake Total 1375 Output Total 200 600 Balance -200 775 Weight 140 lb 126 lb 11.2 oz Last Vital Signs Temp Pulse Resp BP Pulse Ox 98.9 F 70 14 129/59 100 06/24/16 04:40 06/24/16 10:53 06/24/16 09:00 06/24/16 04:40 06/24/16 10:53 Active Medications Carbidopa/Levodopa (Sinemet 25/100 -) 1 each PO QID [facility] [place] Last Admin: 06/24/16 13:25 Dose: 1 each Heparin Sodium (Porcine) (Heparin -) 5,000 unit SQ BID [facility] Last Admin: 06/24/16 10:40 Dose: 5,000 unit Lactated Ringer's (Lactated Ringers Solution) 1,000 mls @ 125 mls/hr IV ASDIR [facility] Last Admin: 06/24/16 04:30 Dose: 125 mls/hr Insulin Human Regular 100 (units/ Sodium Chloride) 100 mls @ 5.74 mls/hr IVPB TITR VERÓNICA; 0.1 UNITS/KG/HR PRN Reason: Protocol Last Titration: 06/24/16 09:00 Dose: 0 units/kg/hr Dextrose/Sodium Chloride (D5-1/2ns -) 1,000 mls @ 100 mls/hr IV ASDIR [facility] [place] Last Admin: 06/24/16 08:30 Dose: 100 mls/hr Insulin Aspart (Novolog Vial Sliding Scale -) 1 vial SQ ACHS [facility] PRN Reason: Protocol Last Admin: 06/24/16 13:04 Dose: 2 unit Insulin Detemir (Levemir Vial) 10 units SQ BID [facility] Last Admin: 06/24/16 09:45 Dose: 10 units Nifedipine (Procardia Xl -) 60 mg PO DAILY [facility] Last Admin: 06/24/16 10:35 Dose: 60 mg Pantoprazole Sodium (Protonix -) 40 mg PO DAILY [facility] [place] Last Admin: 06/24/16 10:34 Dose: 40 mg Polyethylene Glycol (Miralax (For Bowel Prep) -) 17 gm PO HS [facility] Last Admin: 06/24/16 04:28 Dose: Not Given Silver Sulfadiazine (Silvadene -) 1 applic TP DAILY [facility] [place] Last Admin: 06/24/16 09:43 Dose: 1 applic Sodium Chloride (Normal Saline -) 500 ml IV Q20M PRN PRN Reason: MAP<65mm Hg OR SBP <90 Constitutional: Yes: Lethargic, but arousable Eyes: Yes: (-) Pallor HENT: Yes: Dry membranes Neck: Yes: WNL Cardiovascular: Yes: S1, S2 Respiratory: Yes: Diminished at the bases Gastrointestinal: Yes: Normal Bowel Sounds Renal/: Yes: Marquez Present (yellow output) Musculoskeletal: Yes: Other (some contraction) Extremities: Yes: Other (bilateral heel lifts) Edema: No Peripheral Pulses WNL: Yes (+2 bilateral pedal pulses) Integumentary: Yes: Other (appears dry) Neurological: Yes: Lethargic Labs: Laboratory Results - last 24 hr 06/23/16 06/23/16 06/23/16 14:02 14:26 14:29 WBC RBC Hgb Hct MCV MCHC RDW Plt Count MPV Neutrophils % Lymphocytes % Monocytes % Eosinophils % Basophils % INR PTT (Actin FS) Puncture Site ABG pH ABG pCO2 at Pt Temp ABG pO2 at Pt Temp ABG HCO3 ABG O2 Sat (Measured) ABG O2 Content ABG Base Excess Santhosh Test VBG pH POC VBG pCO2 POC VBG pO2 O2 Delivery Device Oxygen Flow Rate PEEP Sodium Potassium Chloride Carbon Dioxide Anion Gap BUN Creatinine Creat Clearance w eGFR POC Glucometer > 400 Random Glucose Hemoglobin A1c % Lactic Acid 5.787 H* Calcium Phosphorus Magnesium Total Bilirubin AST ALT Alkaline Phosphatase Creatine Kinase Creatine Kinase Index CK-MB (CK-2) CK-MB (CK-2) Rel Index Troponin I B-Natriuretic Peptide Total Protein Albumin Urine Color Urine Appearance Urine pH Ur Specific [place] Urine Protein Urine Glucose (UA) Urine Ketones Urine Blood Urine Nitrite Urine Bilirubin Urine Urobilinogen Ur Leukocyte Esterase Urine RBC Urine WBC Ur Epithelial Cells Urine Mucus Acetone, Qual Blood Type O NEGATIVE Antibody Screen Negative 06/23/16 06/23/16 06/23/16 14:30 14:30 14:30 WBC 8.2 RBC 3.83 L Hgb 11.6 L Hct 35.7 MCV 93.2 MCHC 32.4 RDW 13.4 Plt Count 171 MPV 10.4 Neutrophils % 74.8 Lymphocytes % 18.7 Monocytes % 5.6 Eosinophils % 0.4 Basophils % 0.5 INR 0.99 PTT (Actin FS) 27.7 Puncture Site ABG pH ABG pCO2 at Pt Temp ABG pO2 at Pt Temp ABG HCO3 ABG O2 Sat (Measured) ABG O2 Content ABG Base Excess Santhosh Test VBG pH POC VBG pCO2 POC VBG pO2 O2 Delivery Device Oxygen Flow Rate PEEP Sodium 142 Potassium 4.4 Chloride 106 Carbon Dioxide 21 Anion Gap 15 BUN 73 H Creatinine 3.3 H Creat Clearance w eGFR 18.22 POC Glucometer Random Glucose 867 H* Hemoglobin A1c % Lactic Acid Calcium 8.8 Phosphorus Magnesium Total Bilirubin 0.9 AST 31 ALT 13 Alkaline Phosphatase 109 Creatine Kinase 754 H Creatine Kinase Index 0.5 CK-MB (CK-2) 3.802 H CK-MB (CK-2) Rel Index Troponin I 0.04 B-Natriuretic Peptide Total Protein 7.2 Albumin 3.3 L Urine Color Urine Appearance Urine pH Ur Specific [place] Urine Protein Urine Glucose (UA) Urine Ketones Urine Blood Urine Nitrite Urine Bilirubin Urine Urobilinogen Ur Leukocyte Esterase Urine RBC Urine WBC Ur Epithelial Cells Urine Mucus Acetone, Qual Blood Type Antibody Screen 06/23/16 06/23/16 06/23/16 14:30 15:15 16:25 WBC RBC Hgb Hct MCV MCHC RDW Plt Count MPV Neutrophils % Lymphocytes % Monocytes % Eosinophils % Basophils % INR PTT (Actin FS) Puncture Site ABG pH ABG pCO2 at Pt Temp ABG pO2 at Pt Temp ABG HCO3 ABG O2 Sat (Measured) ABG O2 Content ABG Base Excess Santhosh Test VBG pH 7.25 L POC VBG pCO2 48.6 POC VBG pO2 105.0 H O2 Delivery Device Oxygen Flow Rate PEEP Sodium Potassium Chloride Carbon Dioxide Anion Gap BUN Creatinine Creat Clearance w eGFR POC Glucometer Random Glucose Hemoglobin A1c % Lactic Acid Calcium Phosphorus Magnesium Total Bilirubin AST ALT Alkaline Phosphatase Creatine Kinase Creatine Kinase Index CK-MB (CK-2) CK-MB (CK-2) Rel Index Cancelled Troponin I B-Natriuretic Peptide Total Protein Albumin Urine Color Ltyellow Urine Appearance Slcloudy Urine pH 5.0 Ur Specific [place] 1.025 Urine Protein 2+ H Urine Glucose (UA) 3+ H Urine Ketones Negative Urine Blood Negative Urine Nitrite Negative Urine Bilirubin Negative Urine Urobilinogen Negative Ur Leukocyte Esterase Negative Urine RBC <1 Urine WBC 1 Ur Epithelial Cells Rare Urine Mucus Rare Acetone, Qual Blood Type Antibody Screen 06/23/16 06/23/16 06/23/16 17:50 17:50 17:50 WBC RBC Hgb Hct MCV MCHC RDW Plt Count MPV Neutrophils % Lymphocytes % Monocytes % Eosinophils % Basophils % INR PTT (Actin FS) Puncture Site ABG pH ABG pCO2 at Pt Temp ABG pO2 at Pt Temp ABG HCO3 ABG O2 Sat (Measured) ABG O2 Content ABG Base Excess Santhosh Test VBG pH POC VBG pCO2 POC VBG pO2 O2 Delivery Device Oxygen Flow Rate PEEP Sodium 148 H Potassium 4.1 Chloride 110 H Carbon Dioxide 16 L D Anion Gap 22 H BUN 72 H Creatinine 3.5 H Creat Clearance w eGFR POC Glucometer Random Glucose 577 H* D Hemoglobin A1c % Lactic Acid 8.563 H* Calcium 8.9 Phosphorus Magnesium Total Bilirubin AST ALT Alkaline Phosphatase Creatine Kinase Creatine Kinase Index CK-MB (CK-2) CK-MB (CK-2) Rel Index Troponin I B-Natriuretic Peptide Total Protein Albumin Urine Color Urine Appearance Urine pH Ur Specific [place] Urine Protein Urine Glucose (UA) Urine Ketones Urine Blood Urine Nitrite Urine Bilirubin Urine Urobilinogen Ur Leukocyte Esterase Urine RBC Urine WBC Ur Epithelial Cells Urine Mucus Acetone, Qual Blood Type O NEGATIVE Antibody Screen 06/23/16 06/23/16 06/24/16 22:40 22:40 02:33 WBC RBC Hgb Hct MCV MCHC RDW Plt Count MPV Neutrophils % Lymphocytes % Monocytes % Eosinophils % Basophils % INR PTT (Actin FS) Puncture Site ABG pH ABG pCO2 at Pt Temp ABG pO2 at Pt Temp ABG HCO3 ABG O2 Sat (Measured) ABG O2 Content ABG Base Excess Santhosh Test VBG pH POC VBG pCO2 POC VBG pO2 O2 Delivery Device Oxygen Flow Rate PEEP Sodium 147 H Potassium 4.5 Chloride 110 H Carbon Dioxide 21 D Anion Gap 16 BUN 71 H Creatinine 3.2 H Creat Clearance w eGFR POC Glucometer > 400 Random Glucose 566 H* Hemoglobin A1c % Lactic Acid 2.256 H* Calcium 8.5 Phosphorus Magnesium Total Bilirubin AST ALT Alkaline Phosphatase Creatine Kinase Creatine Kinase Index CK-MB (CK-2) CK-MB (CK-2) Rel Index Troponin I B-Natriuretic Peptide Total Protein Albumin Urine Color Urine Appearance Urine pH Ur Specific [place] Urine Protein Urine Glucose (UA) Urine Ketones Urine Blood Urine Nitrite Urine Bilirubin Urine Urobilinogen Ur Leukocyte Esterase Urine RBC Urine WBC Ur Epithelial Cells Urine Mucus Acetone, Qual Blood Type Antibody Screen 06/24/16 06/24/16 06/24/16 03:29 04:00 04:00 WBC RBC Hgb Hct MCV MCHC RDW Plt Count MPV Neutrophils % Lymphocytes % Monocytes % Eosinophils % Basophils % INR PTT (Actin FS) Puncture Site ABG pH ABG pCO2 at Pt Temp ABG pO2 at Pt Temp ABG HCO3 ABG O2 Sat (Measured) ABG O2 Content ABG Base Excess Santhosh Test VBG pH POC VBG pCO2 POC VBG pO2 O2 Delivery Device Oxygen Flow Rate PEEP Sodium 149 H Potassium 4.0 Chloride 115 H Carbon Dioxide 24 Anion Gap 10 BUN 69 H Creatinine 2.9 H Creat Clearance w eGFR 21.15 POC Glucometer > 400 Random Glucose 520 H* Hemoglobin A1c % Lactic Acid Calcium 7.8 L Phosphorus 2.8 Magnesium 2.3 Total Bilirubin 0.8 AST 51 H D ALT 11 L Alkaline Phosphatase 93 Creatine Kinase Creatine Kinase Index CK-MB (CK-2) CK-MB (CK-2) Rel Index Troponin I B-Natriuretic Peptide 463.06 H Total Protein 6.3 L Albumin 3.0 L Urine Color Urine Appearance Urine pH Ur Specific [place] Urine Protein Urine Glucose (UA) Urine Ketones Urine Blood Urine Nitrite Urine Bilirubin Urine Urobilinogen Ur Leukocyte Esterase Urine RBC Urine WBC Ur Epithelial Cells Urine Mucus Acetone, Qual Negative Blood Type Antibody Screen 06/24/16 06/24/16 06/24/16 04:00 04:00 04:00 WBC 7.6 RBC 3.62 L Hgb 10.6 L Hct 32.5 L MCV 89.8 MCHC 32.4 RDW 13.2 Plt Count 145 MPV 10.1 Neutrophils % 86.2 H Lymphocytes % 10.4 D Monocytes % 3.2 L Eosinophils % 0.0 D Basophils % 0.2 INR PTT (Actin FS) Puncture Site ABG pH ABG pCO2 at Pt Temp ABG pO2 at Pt Temp ABG HCO3 ABG O2 Sat (Measured) ABG O2 Content ABG Base Excess Santhosh Test VBG pH POC VBG pCO2 POC VBG pO2 O2 Delivery Device Oxygen Flow Rate PEEP Sodium Potassium Chloride Carbon Dioxide Anion Gap BUN Creatinine Creat Clearance w eGFR POC Glucometer Random Glucose Hemoglobin A1c % Lactic Acid Calcium Phosphorus Magnesium Total Bilirubin AST ALT Alkaline Phosphatase Creatine Kinase 1885 H D Creatine Kinase Index 1.3 CK-MB (CK-2) 24.127 H CK-MB (CK-2) Rel Index Cancelled Troponin I 0.05 B-Natriuretic Peptide Total Protein Albumin Urine Color Urine Appearance Urine pH Ur Specific [place] Urine Protein Urine Glucose (UA) Urine Ketones Urine Blood Urine Nitrite Urine Bilirubin Urine Urobilinogen Ur Leukocyte Esterase Urine RBC Urine WBC Ur Epithelial Cells Urine Mucus Acetone, Qual Blood Type Antibody Screen 06/24/16 06/24/16 06/24/16 04:20 04:25 06:00 WBC RBC Hgb Hct MCV MCHC RDW Plt Count MPV Neutrophils % Lymphocytes % Monocytes % Eosinophils % Basophils % INR PTT (Actin FS) Puncture Site Right radial ABG pH 7.36 ABG pCO2 at Pt Temp 37.6 ABG pO2 at Pt Temp 111.0 H ABG HCO3 20.8 L ABG O2 Sat (Measured) 98.5 ABG O2 Content 13.8 L ABG Base Excess -3.7 L Santhosh Test Positive VBG pH POC VBG pCO2 POC VBG pO2 O2 Delivery Device Room air Oxygen Flow Rate 21% PEEP 0.0 Sodium Potassium Chloride Carbon Dioxide Anion Gap BUN Creatinine Creat Clearance w eGFR POC Glucometer > 400 Random Glucose Hemoglobin A1c % Lactic Acid 1.512 Calcium Phosphorus Magnesium Total Bilirubin AST ALT Alkaline Phosphatase Creatine Kinase Creatine Kinase Index CK-MB (CK-2) CK-MB (CK-2) Rel Index Troponin I B-Natriuretic Peptide Total Protein Albumin Urine Color Urine Appearance Urine pH Ur Specific [place] Urine Protein Urine Glucose (UA) Urine Ketones Urine Blood Urine Nitrite Urine Bilirubin Urine Urobilinogen Ur Leukocyte Esterase Urine RBC Urine WBC Ur Epithelial Cells Urine Mucus Acetone, Qual Blood Type Antibody Screen 06/24/16 06/24/16 06/24/16 06:25 08:03 08:05 WBC RBC Hgb Hct MCV MCHC RDW Plt Count MPV Neutrophils % Lymphocytes % Monocytes % Eosinophils % Basophils % INR PTT (Actin FS) Puncture Site ABG pH ABG pCO2 at Pt Temp ABG pO2 at Pt Temp ABG HCO3 ABG O2 Sat (Measured) ABG O2 Content ABG Base Excess Santhosh Test VBG pH POC VBG pCO2 POC VBG pO2 O2 Delivery Device Oxygen Flow Rate PEEP Sodium 153 H Potassium 3.4 L Chloride 120 H Carbon Dioxide 23 Anion Gap 10 BUN 62 H Creatinine 2.7 H Creat Clearance w eGFR POC Glucometer 392.50934 122.88629 Random Glucose 212 H D Hemoglobin A1c % Lactic Acid Calcium 7.8 L Phosphorus Magnesium Total Bilirubin AST ALT Alkaline Phosphatase Creatine Kinase Creatine Kinase Index CK-MB (CK-2) CK-MB (CK-2) Rel Index Troponin I B-Natriuretic Peptide Total Protein Albumin Urine Color Urine Appearance Urine pH Ur Specific [place] Urine Protein Urine Glucose (UA) Urine Ketones Urine Blood Urine Nitrite Urine Bilirubin Urine Urobilinogen Ur Leukocyte Esterase Urine RBC Urine WBC Ur Epithelial Cells Urine Mucus Acetone, Qual Blood Type Antibody Screen 06/24/16 06/24/16 06/24/16 08:05 08:05 09:20 WBC RBC Hgb Hct MCV MCHC RDW Plt Count MPV Neutrophils % Lymphocytes % Monocytes % Eosinophils % Basophils % INR PTT (Actin FS) Puncture Site ABG pH ABG pCO2 at Pt Temp ABG pO2 at Pt Temp ABG HCO3 ABG O2 Sat (Measured) ABG O2 Content ABG Base Excess Santhosh Test VBG pH POC VBG pCO2 POC VBG pO2 O2 Delivery Device Oxygen Flow Rate PEEP Sodium Potassium Chloride Carbon Dioxide Anion Gap BUN Creatinine Creat Clearance w eGFR POC Glucometer 151.48143 Random Glucose Hemoglobin A1c % Lactic Acid Calcium Phosphorus Magnesium Total Bilirubin AST ALT Alkaline Phosphatase Creatine Kinase 2908 H D Creatine Kinase Index 1.3 CK-MB (CK-2) 37.832 H CK-MB (CK-2) Rel Index Cancelled Troponin I 0.08 H D B-Natriuretic Peptide Total Protein Albumin Urine Color Urine Appearance Urine pH Ur Specific [place] Urine Protein Urine Glucose (UA) Urine Ketones Urine Blood Urine Nitrite Urine Bilirubin Urine Urobilinogen Ur Leukocyte Esterase Urine RBC Urine WBC Ur Epithelial Cells Urine Mucus Acetone, Qual Blood Type Antibody Screen 06/24/16 06/24/16 06/24/16 11:35 11:43 12:59 WBC RBC Hgb Hct MCV MCHC RDW Plt Count MPV Neutrophils % Lymphocytes % Monocytes % Eosinophils % Basophils % INR PTT (Actin FS) Puncture Site ABG pH ABG pCO2 at Pt Temp ABG pO2 at Pt Temp ABG HCO3 ABG O2 Sat (Measured) ABG O2 Content ABG Base Excess Santhosh Test VBG pH POC VBG pCO2 POC VBG pO2 O2 Delivery Device Oxygen Flow Rate PEEP Sodium Potassium Chloride Carbon Dioxide Anion Gap BUN Creatinine Creat Clearance w eGFR POC Glucometer 63.86471 178.00228 Random Glucose Hemoglobin A1c % 10.2 H Lactic Acid Calcium Phosphorus Magnesium Total Bilirubin AST ALT Alkaline Phosphatase Creatine Kinase Creatine Kinase Index CK-MB (CK-2) CK-MB (CK-2) Rel Index Troponin I B-Natriuretic Peptide Total Protein Albumin Urine Color Urine Appearance Urine pH Ur Specific [place] Urine Protein Urine Glucose (UA) Urine Ketones Urine Blood Urine Nitrite Urine Bilirubin Urine Urobilinogen Ur Leukocyte Esterase Urine RBC Urine WBC Ur Epithelial Cells Urine Mucus Acetone, Qual Blood Type Antibody Screen IMP: AMS Hyperosmolar HTN CAD DM Parkinson's Dementia Glaucoma Lactic acidosis PLAN: IVF O2 as needed Home meds Off ABX Glycemic control 4W/4S monitoring Dr Lindsey CCTime 35"
--- NOTE | 2016-06-24 14:00 | PN ---
Addendum entered and electronically signed by Junior Reardon RES 06/24/16 14:11: disreqard cardiology consult disregard paced rhythm sidregard need to upgrade BIVICD Original Note: Progress Note, Physician History of Present Illness: lying in bed more awake today ecuadorean speaking - Current Medication List Current Medications: Active Medications Carbidopa/Levodopa (Sinemet 25/100 -) 1 each PO QID VERÓNICA Last Admin: 06/24/16 13:25 Dose: 1 each Heparin Sodium (Porcine) (Heparin -) 5,000 unit SQ BID [facility]NICA Last Admin: 06/24/16 10:40 Dose: 5,000 unit Lactated Ringer's (Lactated Ringers Solution) 1,000 mls @ 125 mls/hr IV ASDIR [facility]NICA Last Admin: 06/24/16 04:30 Dose: 125 mls/hr Insulin Human Regular 100 (units/ Sodium Chloride) 100 mls @ 5.74 mls/hr IVPB TITR [facility]ÓNICA; 0.1 UNITS/KG/HR PRN Reason: Protocol Last Titration: 06/24/16 09:00 Dose: 0 units/kg/hr Dextrose/Sodium Chloride (D5-1/2ns -) 1,000 mls @ 100 mls/hr IV ASDIR [facility]NICA Last Admin: 06/24/16 08:30 Dose: 100 mls/hr Insulin Aspart (Novolog Vial Sliding Scale -) 1 vial SQ ACHS [facility] PRN Reason: Protocol Last Admin: 06/24/16 13:04 Dose: 2 unit Insulin Detemir (Levemir Vial) 10 units SQ BID [facility] Last Admin: 06/24/16 09:45 Dose: 10 units Nifedipine (Procardia Xl -) 60 mg PO DAILY [facility] Last Admin: 06/24/16 10:35 Dose: 60 mg Pantoprazole Sodium (Protonix -) 40 mg PO DAILY [facility] Last Admin: 06/24/16 10:34 Dose: 40 mg Polyethylene Glycol (Miralax (For Bowel Prep) -) 17 gm PO HS REPLACED BY [facility] Last Admin: 06/24/16 04:28 Dose: Not Given Silver Sulfadiazine (Silvadene -) 1 applic TP DAILY [facility] Last Admin: 06/24/16 09:43 Dose: 1 applic Sodium Chloride (Normal Saline -) 500 ml IV Q20M PRN PRN Reason: MAP<65mm Hg OR SBP <90 - Objective Vital Signs: Vital Signs Temperature 98.9 F 06/24/16 04:40 Pulse Rate 70 06/24/16 10:53 Respiratory Rate 14 06/24/16 09:00 Blood Pressure 129/59 06/24/16 04:40 O2 Sat by Pulse Oximetry (%) 100 06/24/16 10:53 Constitutional: Yes: Thin Eyes: Yes: resists eye opening Neck: Yes: WNL Cardiovascular: Yes: paced Respiratory: Yes: CTAB Gastrointestinal: Yes: Normal Bowel Sounds ...Rectal Exam: Yes: Deferred Renal/: Yes: Marquez Present (yellow output Edema: No Integumentary: Yes: Other (appears dry) Neurological: Yes: awake alert answers yes/no to some questions Labs: CBC, BMP 06/24/16 04:00 06/24/16 08:05 INR, PTT INR 0.99 (0.82-1.09) 06/23/16 14:30 Assessment/Plan Pt is an 80yr old man with PMHx of HTN, CAD, DM, Parkinson's disease, dementia and glaucoma. admitted to the ICU for management of uncontrolled glucose, lactic acidosis and ams. likely hyperglycemic hyperosmolar state Pulm: doing well on room air ID: Lactic acidosis. WBC wnl, afebrile -f/u cultures -Will monitor off antibiotics for now elevated lactic acid resolved ID conult appreciated Neuro: AMS-patient has altetred mental status at baseline Endo: Uncontrolled glucose/HHS -BGM -Glycemic control endocrinology consult appreciated -f/u A1c Renal: Elevated BUN/Cr, likely chronic. Baseline unknown -IVF as tolerated -I/Os -Monitor BUN/Cr f/u nephrology -Renal dose medication -Replete electrolytes PRN Cardio BP control cardiology consult appreciated may need upgrade to BIVICD Skin: -Continue heel lifts -Wound care Prophylactic -DVT -Continue home PPI transfer to telemetry
--- NOTE | 2016-06-24 14:17 | CONSULT ---
Consult Consult Specialty:: Nephrology Reason for Consultation:: PRABHU - History of Present Illness Chief Complaint: sent in for altered mental status History of Present Illness: Pt is a 80 year old male with pmhx of DM, CAD, HTN, Parkinsons and dementia who was sent in to the ER from [facility] for altered mental status and elevated blood sugar. He was found to be hyperglycemic in the ER. He is unable to give history. He responds to simple questions. He was found to be in renal failure and I was called to evaluate him. He is more arousable today. His daughter is at bedside and says that he is usually more interactive. - History Source History Provided By: Medical Record Limitations to Obtaining History: Clinical Condition - Past Medical History [employer]: Yes: Alzheimer's Cardio/Vascular: Yes: HTN Pulmonary: Yes: COPD Endocrine: Yes: Diabetes Mellitus - Smoking History Smoking history: Unknown if ever smoked Have you smoked in the past 12 months: No Home Medications - Allergies Allergies/Adverse Reactions: Allergies Allergy/AdvReac Type Severity Reaction Status Date / Time No Known Allergies Allergy Verified 06/23/16 16:14 - Home Medications Home Medications: Ambulatory Orders Baclofen [Lioresal -] 10 mg PO BID 06/23/16 Carbidopa/Levodopa [Carbidopa-Levodopa 25-100 Tab] 1 each PO QID 06/23/16 Insulin (Novolog) [Novolog] 8 units SQ HS 06/23/16 Insulin Aspart [Novolog] 100 unit SQ ACHS 06/23/16 Lisinopril [Prinivil] 20 mg PO DAILY 06/23/16 Nifedipine ER [Procardia Xl -] 60 mg PO DAILY 06/23/16 Pantoprazole Sodium [Protonix] 40 mg PO DAILY 06/23/16 Polyethylene Glycol 3350 [Miralax (For Bowel Prep) -] 17 gm PO HS 06/23/16 Silver Sulfadiazine [Silvadene] 1 applic TP DAILY 06/23/16 Family Disease History - Family Disease History Family History: Unable to Obtain Review of Systems Unable to obtain ROS, reason: poor historian Physical Exam Vital Signs: Vital Signs Temperature 98.9 F 06/24/16 04:40 Pulse Rate 70 06/24/16 10:53 Respiratory Rate 14 06/24/16 09:00 Blood Pressure 129/59 06/24/16 04:40 O2 Sat by Pulse Oximetry (%) 100 06/24/16 10:53 Constitutional: Yes: Calm Eyes: Yes: Conjunctiva Clear HENT: Yes: Atraumatic Cardiovascular: Yes: S1, S2 Respiratory: Yes: CTA Bilaterally, On Nasal O2 Gastrointestinal: Yes: Soft Renal/: Yes: Marquez Present Musculoskeletal: Yes: Muscle Weakness Edema: No Neurological: Yes: Other (arousable) Labs: CBC, BMP 06/24/16 04:00 06/24/16 08:05 Laboratory Tests 06/23/16 06/23/16 06/23/16 14:30 14:30 16:25 WBC 8.2 Hgb 11.6 L ABG pH ABG pCO2 at Pt Temp ABG pO2 at Pt Temp ABG HCO3 ABG O2 Sat (Measured) ABG O2 Content ABG Base Excess Sodium Potassium Chloride Carbon Dioxide Anion Gap BUN Creatinine 3.3 H Hemoglobin A1c % Creatine Kinase 754 H Urine Color Ltyellow Urine Appearance Slcloudy Urine pH 5.0 Ur Specific Colon 1.025 Urine Protein 2+ H Urine Glucose (UA) 3+ H Urine Ketones Negative Urine Blood Negative Urine Nitrite Negative Urine Bilirubin Negative Urine Urobilinogen Negative Ur Leukocyte Esterase Negative 06/23/16 06/23/16 06/24/16 17:50 22:40 04:00 WBC Hgb ABG pH ABG pCO2 at Pt Temp ABG pO2 at Pt Temp ABG HCO3 ABG O2 Sat (Measured) ABG O2 Content ABG Base Excess Sodium Potassium Chloride Carbon Dioxide Anion Gap BUN Creatinine 3.5 H 3.2 H 2.9 H Hemoglobin A1c % Creatine Kinase Urine Color Urine Appearance Urine pH Ur Specific Colon Urine Protein Urine Glucose (UA) Urine Ketones Urine Blood Urine Nitrite Urine Bilirubin Urine Urobilinogen Ur Leukocyte Esterase 06/24/16 06/24/16 06/24/16 04:00 04:00 06:00 WBC Hgb 10.6 L ABG pH 7.36 ABG pCO2 at Pt Temp 37.6 ABG pO2 at Pt Temp 111.0 H ABG HCO3 20.8 L ABG O2 Sat (Measured) 98.5 ABG O2 Content 13.8 L ABG Base Excess -3.7 L Sodium Potassium Chloride Carbon Dioxide Anion Gap BUN Creatinine Hemoglobin A1c % Creatine Kinase 1885 H D Urine Color Urine Appearance Urine pH Ur Specific Colon Urine Protein Urine Glucose (UA) Urine Ketones Urine Blood Urine Nitrite Urine Bilirubin Urine Urobilinogen Ur Leukocyte Esterase 06/24/16 06/24/16 06/24/16 08:05 08:05 11:35 WBC Hgb ABG pH ABG pCO2 at Pt Temp ABG pO2 at Pt Temp ABG HCO3 ABG O2 Sat (Measured) ABG O2 Content ABG Base Excess Sodium 153 H Potassium 3.4 L Chloride 120 H Carbon Dioxide 23 Anion Gap 10 BUN 62 H Creatinine 2.7 H Hemoglobin A1c % 10.2 H Creatine Kinase 2908 H D Urine Color Urine Appearance Urine pH Ur Specific Colon Urine Protein Urine Glucose (UA) Urine Ketones Urine Blood Urine Nitrite Urine Bilirubin Urine Urobilinogen Ur Leukocyte Esterase Imaging - Results Chest X-ray: Report Reviewed Cat Scan: Report Reviewed (ct head neg) Assessment/Plan Current Medications Generic Name Dose Route Start Last Admin Trade Name Freq PRN Reason Stop Dose Admin Carbidopa/Levodopa 1 each 06/23/16 22:00 06/24/16 13:25 Sinemet 25/100 - PO 1 each QID VERÓNICA Administration Heparin Sodium (Porcine) 5,000 unit 06/23/16 22:00 06/24/16 10:40 Heparin - SQ 5,000 unit BID VER[facility]NICA Administration Lactated Ringer's 1,000 mls @ 125 mls/hr 06/24/16 03:45 06/24/16 04:30 Lactated Ringers Solution IV 125 mls/hr ASDIR VERÓNICA Administration Insulin Human Regular 100 100 mls @ 5.74 mls/hr 06/24/16 05:45 06/24/16 09:00 units/ Sodium Chloride IVPB 0 units/kg/hr TITR VERÓNICA Titration Protocol 0.1 UNITS/KG/HR Dextrose/Sodium Chloride 1,000 mls @ 100 mls/hr 06/24/16 08:30 06/24/16 08:30 D5-1/2ns - IV 100 mls/hr ASDIR VERÓNICA Administration Insulin Aspart 1 vial 06/24/16 16:30 Novolog Vial Sliding Scale - SQ TIDAC VER[facility]NICA Protocol Insulin Aspart 0 units 06/24/16 22:00 Novolog SQ HS [facility]NICA Protocol Insulin Detemir 10 units 06/25/16 10:00 Levemir Vial SQ DAILY VER[facility]NICA Nifedipine 60 mg 06/24/16 10:00 06/24/16 10:35 Procardia Xl - PO 60 mg DAILY VER[facility]NICA Administration Pantoprazole Sodium 40 mg 06/24/16 10:00 06/24/16 10:34 Protonix - PO 40 mg DAILY VERÓNICA Administration Polyethylene Glycol 17 gm 06/23/16 22:00 06/24/16 04:28 Miralax (For Bowel Prep) - PO Not Given HS VERÓNICA Silver Sulfadiazine 1 applic 06/24/16 10:00 06/24/16 09:43 Silvadene - TP 1 applic DAILY VER[facility]NICA Administration Sodium Chloride 500 ml 06/23/16 14:29 Normal Saline - IV Q20M PRN MAP<65mm Hg OR SBP <90 Impression 1. PRABHU 2. DM 3. HTN 4. rhabdomyolosis 5. dementia 6. parkinsons 7. CAD Plan - renal function is improving - cont with fluids, use 1/2 ns - replace potassium - check mag - check phos - check CK levels - follow cultures - will follow pt Dr Mcmanus
--- NOTE | 2016-06-24 15:40 | EKG ---
Test Reason : Blood Pressure : / mmHG Vent. Rate : 066 BPM Atrial Rate : 066 BPM P-R Int : 142 ms QRS Dur : 094 ms QT Int : 446 ms P-R-T Axes : 029 -04 059 degrees QTc Int : 467 ms POOR DATA QUALITY, INTERPRETATION MAY BE ADVERSELY AFFECTED NORMAL SINUS RHYTHM INFERIOR INFARCT , AGE UNDETERMINED ANTERIOR INFARCT , AGE UNDETERMINED ABNORMAL ECG NO PREVIOUS ECGS AVAILABLE Confirmed by LG PHAN, YINKA ([id number]) on 06/24/2016 3:39:58 PM Referred By: Overread By: YINKA CASTANON MD
[2016-06-25] MEDS: LACTATED RINGERS SOLUTION 1,000 ML IV SCH (03:45)
[2016-06-25] MEDS: DEXTROSE 5%-0.45% SALINE 1,000 ML IV SCH ×3 (05:00→18:18)
[2016-06-25 06:15] LABS: ALBUMIN 2.8 g/dl (3.4-5.0); CALCIUM 7.8 mg/dL (8.5-10.1)
[2016-06-25] MEDS: INSULIN DETEMIR 100 UNITS/ML MDV SQ SCH (06:19)
[2016-06-25] MEDS: INSULIN SLIDING SCALE (NOVOLOG) 1 VIAL SQ SCH ×4 (06:20→23:30)
[2016-06-25 06:28] LABS: BILIRUBIN,TOTAL 0.7 mg/dL (0.2-1.0); TOT PROT 5.9 g/dl (6.4-8.2)
[2016-06-25] MEDS: INSULIN REGULAR 100 UNITS in SODIUM CHLORIDE 99 ML IVPB SCH (07:00)
--- NOTE | 2016-06-25 08:10 | PN ---
Progress Note, Physician Chief Complaint: ID Remains afebrile off antibiotics - Current Medication List Current Medications: Active Medications Carbidopa/Levodopa (Sinemet 25/100 -) 1 each PO QID [facility] Last Admin: 06/24/16 22:16 Dose: 1 each Heparin Sodium (Porcine) (Heparin -) 5,000 unit SQ BID [facility] Last Admin: 06/24/16 22:15 Dose: 5,000 unit Lactated Ringer's (Lactated Ringers Solution) 1,000 mls @ 125 mls/hr IV ASDIR [facility] Last Admin: 06/25/16 03:45 Dose: Not Given Insulin Human Regular 100 (units/ Sodium Chloride) 100 mls @ 5.74 mls/hr IVPB TITR VERÓNICA; 0.1 UNITS/KG/HR PRN Reason: Protocol Last Titration: 06/24/16 09:00 Dose: 0 units/kg/hr Dextrose/Sodium Chloride (D5-1/2ns -) 1,000 mls @ 100 mls/hr IV ASDIR [facility] Last Admin: 06/25/16 05:00 Dose: 100 mls/hr Insulin Aspart (Novolog Vial Sliding Scale -) 1 vial SQ TIDAC [facility] PRN Reason: Protocol Last Admin: 06/25/16 06:20 Dose: 2 units Insulin Aspart (Novolog Vial Sliding Scale -) 0 vial SQ HS [facility] PRN Reason: Protocol Last Admin: 06/24/16 22:16 Dose: Not Given Insulin Detemir (Levemir Vial) 10 units SQ DAILY@0700 [facility] Last Admin: 06/25/16 06:19 Dose: 10 units Nifedipine (Procardia Xl -) 60 mg PO DAILY [facility] Last Admin: 06/24/16 10:35 Dose: 60 mg Pantoprazole Sodium (Protonix -) 40 mg PO DAILY [facility] Last Admin: 06/24/16 10:34 Dose: 40 mg Polyethylene Glycol (Miralax (For Bowel Prep) -) 17 gm PO HS [facility] Last Admin: 06/24/16 22:15 Dose: 17 gm Silver Sulfadiazine (Silvadene -) 1 applic TP DAILY [facility] Last Admin: 06/24/16 09:43 Dose: 1 applic Sodium Chloride (Normal Saline -) 500 ml IV Q20M PRN PRN Reason: MAP<65mm Hg OR SBP <90 - Objective Vital Signs: Vital Signs Temperature 97.8 F 06/25/16 02:00 Pulse Rate 62 06/25/16 04:00 Respiratory Rate 17 06/25/16 04:00 Blood Pressure 163/66 06/25/16 04:00 O2 Sat by Pulse Oximetry (%) 100 06/24/16 21:00 Constitutional: Yes: Well Nourished, No Distress Cardiovascular: Yes: Regular Rate and Rhythm, S1, S2. No: Murmur Respiratory: Yes: WNL, Regular, CTA Bilaterally Gastrointestinal: Yes: WNL, Normal Bowel Sounds, Soft. No: Tenderness Edema: No Labs: CBC, BMP 06/24/16 04:00 06/25/16 04:50 INR, PTT INR 0.99 (0.82-1.09) 06/23/16 14:30 Assessment/Plan Microbiology 06/24/16 04:00 Nasopharyngeal Swab Influenza Types A,B Antigen (NASIMA) - Final 06/24/16 04:00 Nasopharyngeal Swab - Final 06/23/16 14:30 Blood - Peripheral Venous Blood Culture - Preliminary NO GROWTH OBTAINED AFTER 24 HOURS, INCUBATION TO CONTINUE FOR 4 DAYS. 06/23/16 14:26 Blood - Peripheral Venous Blood Culture - Preliminary NO GROWTH OBTAINED AFTER 24 HOURS, INCUBATION TO CONTINUE FOR 4 DAYS. Laboratory Tests 06/23/16 06/24/16 06/25/16 14:30 04:00 04:50 WBC 7.6 Hgb 10.6 L Hct 32.5 L Plt Count 145 INR 0.99 Creat Clearance w eGFR 32.48 Random Glucose 151 H D Assessment Hyperosmolar state No evidence of associated infection thus far Plan Continue to observe off antibiotics Rik PHAN
--- NOTE | 2016-06-25 08:57 | PN ---
Progress Note, Physician Chief Complaint: ASLEEP, AROUSAL+ COMMUNICATING DENIES CHEST PAIN NO SOB - Current Medication List Current Medications: Active Medications Carbidopa/Levodopa (Sinemet 25/100 -) 1 each PO QID [facility] Last Admin: 06/24/16 22:16 Dose: 1 each Heparin Sodium (Porcine) (Heparin -) 5,000 unit SQ BID [facility] Last Admin: 06/24/16 22:15 Dose: 5,000 unit Lactated Ringer's (Lactated Ringers Solution) 1,000 mls @ 125 mls/hr IV ASDIR [facility] Last Admin: 06/25/16 03:45 Dose: Not Given Insulin Human Regular 100 (units/ Sodium Chloride) 100 mls @ 5.74 mls/hr IVPB TITR VERÓNICA; 0.1 UNITS/KG/HR PRN Reason: Protocol Last Admin: 06/25/16 07:00 Dose: Not Given Dextrose/Sodium Chloride (D5-1/2ns -) 1,000 mls @ 100 mls/hr IV ASDIR [facility] Last Admin: 06/25/16 08:44 Dose: 100 mls/hr Insulin Aspart (Novolog Vial Sliding Scale -) 1 vial SQ TIDAC [facility] PRN Reason: Protocol Last Admin: 06/25/16 06:20 Dose: 2 units Insulin Aspart (Novolog Vial Sliding Scale -) 0 vial SQ HS [facility] PRN Reason: Protocol Last Admin: 06/24/16 22:16 Dose: Not Given Insulin Detemir (Levemir Vial) 10 units SQ DAILY@0700 [facility] Last Admin: 06/25/16 06:19 Dose: 10 units Nifedipine (Procardia Xl -) 60 mg PO DAILY [facility] Last Admin: 06/24/16 10:35 Dose: 60 mg Pantoprazole Sodium (Protonix -) 40 mg PO DAILY [facility] Last Admin: 06/24/16 10:34 Dose: 40 mg Polyethylene Glycol (Miralax (For Bowel Prep) -) 17 gm PO HS [facility] Last Admin: 06/24/16 22:15 Dose: 17 gm Silver Sulfadiazine (Silvadene -) 1 applic TP DAILY [facility] Last Admin: 06/24/16 09:43 Dose: 1 applic Sodium Chloride (Normal Saline -) 500 ml IV Q20M PRN PRN Reason: MAP<65mm Hg OR SBP <90 - Objective Vital Signs: Vital Signs Temperature 97.6 F 06/25/16 08:00 Pulse Rate 94 H 06/25/16 08:00 Respiratory Rate 13 06/25/16 08:00 Blood Pressure 185/77 06/25/16 08:00 O2 Sat by Pulse Oximetry (%) 100 06/24/16 21:00 Constitutional: Yes: Mild Distress Eyes: Yes: WNL HENT: Yes: WNL Neck: Yes: WNL Cardiovascular: Yes: WNL Respiratory: Yes: WNL Gastrointestinal: Yes: WNL Genitourinary: Yes: Incontinence Musculoskeletal: Yes: Joint Stiffness, Muscle Weakness Extremities: Yes: Other Edema: No Peripheral Pulses WNL: Yes Integumentary: Yes: WNL Wound/Incision: Yes: Clean/Dry Neurological: Yes: Pre-Existing Deficit, Unsteady Gait, Weakness ...Motor Strength: LUE, LLE, RUE, RLE Psychiatric: Yes: Other Labs: CBC, BMP 06/24/16 04:00 06/25/16 04:50 INR, PTT INR 0.99 (0.82-1.09) 06/23/16 14:30 Assessment/Plan Pt is an 80yr old man with PMHx of HTN, CAD, DM, Parkinson's disease, dementia and glaucoma. He presents to the ER from [facility] with CC of AMS and elevated glucose. In the ER pt with serum glucose 867, CK 754, lactic acid 5.787 (--> 8.563) and BUN/Cr 73/3.3. Unable to obtain history due to mental status. Pt assessed in the ER. Pt arousable but nonverbal (baseline), vital signs in chart reviewed. DKA/HYPEROSMOLAR SYNDROME : IVF, SSI, BGM ENDOCRINE CONSULT APPRECIATED ICU ADMISSION NOW TRANSFERRING TO [facility] ACUTE RENAL FAILURE: RENAL CONSULT HOLD ANY NEPHROTOXIC MEDICATIONS IVF SEPSIS: LACTIC ACID ELEVATE BLOOD AND URINE CULTURES IV ABX IVF CVA/DEMENTIA: BASELINE AT THIS TIME NEUROCHECKS
[2016-06-25] MEDS: HEPARIN NA (PORCINE) 5,000 UNITS/ML 1ML VIAL SQ SCH ×2 (09:15→21:57)
[2016-06-25] MEDS: PANTOPRAZOLE 40 MG TABLET (FP) PO SCH (09:15)
[2016-06-25] MEDS: CARBIDOPA/LEVODOPA 25/100 TABLET (FP) PO SCH ×4 (09:15→21:58)
[2016-06-25] MEDS: NIFEdipine E.R 60 MG TABLET (UD) PO SCH (09:15)
[2016-06-25] MEDS: SILVER SULFADIAZINE 1% TOP CREAM 50 GM JAR TP SCH (09:16)
--- NOTE | 2016-06-25 09:28 | PN ---
Progress Note (short form) - Note Progress Note: Awake, responsive Denies any complaints Blood sugar fluctuating Food intake poor Vital Signs Period Temp Pulse Resp BP Sys/[place] Pulse Ox Last 24 Hr 97.6 F-98.8 F 62-94 11-17 153-185/66-77 100-100 PE; Awake, responds to verbal commands Neck: Supple, No JVD Lungs: CTA CVS: S1S2 Abd: Benign EXt: No Edema CMP Sodium 151 mmol/L (136-145) H 06/25/16 04:50 Potassium 3.8 mmol/L (3.5-5.1) 06/25/16 04:50 Chloride 118 mmol/L (98-107) H 06/25/16 04:50 Carbon Dioxide 26 mmol/L (21-32) 06/25/16 04:50 Anion Gap 7 (8-16) L 06/25/16 04:50 BUN 50 mg/dL (7-18) H 06/25/16 04:50 Creatinine 2.0 mg/dL (0.7-1.3) H D 06/25/16 04:50 Creat Clearance w eGFR 32.48 (>60) 06/25/16 04:50 POC Glucometer 174.96028 UNITS (()) 06/24/16 21:04 Random Glucose 151 mg/dL (74-106) H D 06/25/16 04:50 Hemoglobin A1c % 10.2 % (4.8-6.0) H 06/24/16 11:35 Lactic Acid 1.512 mmol/L (0.4-2.0) 06/24/16 04:20 Calcium 7.8 mg/dL (8.5-10.1) L 06/25/16 04:50 Phosphorus 2.8 mg/dL (2.5-4.9) 06/24/16 04:00 Magnesium 2.3 mg/dL (1.8-2.4) 06/24/16 04:00 Total Bilirubin 0.7 mg/dL (0.2-1.0) 06/25/16 04:50 AST 90 U/L (15-37) H D 06/25/16 04:50 ALT 12 U/L (12-78) 06/25/16 04:50 Alkaline Phosphatase 74 U/L (45-117) D 06/25/16 04:50 Creatine Kinase 2767 IU/L (39-308) H 06/25/16 04:50 Creatine Kinase Index 0.7 % (0.0-5.0) 06/25/16 04:50 CK-MB (CK-2) 20.660 ng/ml (0.5-3.6) H 06/25/16 04:50 CK-MB (CK-2) Rel Index Cancelled 06/23/16 14:30 Troponin I 0.08 ng/ml (0.00-0.05) H D 06/24/16 08:05 B-Natriuretic Peptide 463.06 pg/ml (5-450) H 06/24/16 04:00 Total Protein 5.9 g/dl (6.4-8.2) L 06/25/16 04:50 Albumin 2.8 g/dl (3.4-5.0) L 06/25/16 04:50 Current Medications Generic Name Dose Route Start Last Admin Trade Name Freq PRN Reason Stop Dose Admin Carbidopa/Levodopa 1 each 06/23/16 22:00 06/25/16 09:15 Sinemet 25/100 - PO 1 each QID VERÓNICA Administration Heparin Sodium (Porcine) 5,000 unit 06/23/16 22:00 06/25/16 09:15 Heparin - SQ 5,000 unit BID [facility]NICA Administration Lactated Ringer's 1,000 mls @ 125 mls/hr 06/24/16 03:45 06/25/16 03:45 Lactated Ringers Solution IV Not Given ASDIR VERÓNICA Insulin Human Regular 100 100 mls @ 5.74 mls/hr 06/24/16 05:45 06/25/16 07:00 units/ Sodium Chloride IVPB Not Given TITR VERÓNICA Protocol 0.1 UNITS/KG/HR Dextrose/Sodium Chloride 1,000 mls @ 100 mls/hr 06/24/16 08:30 06/25/16 08:44 D5-1/2ns - IV 100 mls/hr ASDIR VERÓNICA Administration Insulin Aspart 1 vial 06/24/16 16:30 06/25/16 06:20 Novolog Vial Sliding Scale - SQ 2 units TIDAC [facility] Administration Protocol Insulin Aspart 0 vial 06/24/16 22:00 06/24/16 22:16 Novolog Vial Sliding Scale - SQ Not Given HS [facility] Protocol Insulin Detemir 10 units 06/25/16 07:00 06/25/16 06:19 Levemir Vial SQ 10 units DAILY@0700 [facility]ICA Administration Nifedipine 60 mg 06/24/16 10:00 06/25/16 09:15 Procardia Xl - PO 60 mg DAILY [facility] Administration Pantoprazole Sodium 40 mg 06/24/16 10:00 06/25/16 09:15 Protonix - PO 40 mg DAILY [facility] Administration Polyethylene Glycol 17 gm 06/23/16 22:00 06/24/16 22:15 Miralax (For Bowel Prep) - PO 17 gm HS [facility]ICA Administration Silver Sulfadiazine 1 applic 06/24/16 10:00 06/25/16 09:16 Silvadene - TP 1 applic DAILY [facility] Administration Sodium Chloride 500 ml 06/23/16 14:29 Normal Saline - IV Q20M PRN MAP<65mm Hg OR SBP <90 Hyperglycemic Hyperosmolar state Calculated S Osm 358 on admission, now normalized Levemir to 10 units daily Novolog coverage QACHS P.O intake poor IV hydration as necessary Parkinson's disease Dementia HTN Lactic Acidosis
[2016-06-25 10:32] LABS: URINE APPEARANCE CLEAR; URINE BILIRUBIN NEGATIVE (NEGATIVE); URINE COLOR STRAW; URINE GLUCOSE (UA) 2+ (NEGATIVE); URINE KETONE NEGATIVE (NEGATIVE); URINE LEUK ESTERASE NEGATIVE (NEGATIVE); URINE NITRITE NEGATIVE (NEGATIVE); URINE UROBILINOGEN NEGATIVE E.U./dl (0.2-1.0)
[2016-06-25 10:37] LABS: URINE BLOOD 3+ (NEGATIVE)
[2016-06-25 10:38] LABS: URINE PROTEIN 1+ (NEGATIVE)
[2016-06-25 11:17] LABS: URINE MUCUS RARE; URINE RBC 12 /hpf (0-3); URINE WBC <1 /hpf (3-5)
--- NOTE | 2016-06-25 11:20 | PN ---
Progress Note, Physician History of Present Illness: lying in bed more awake today - Current Medication List Current Medications: Active Medications Carbidopa/Levodopa (Sinemet 25/100 -) 1 each PO QID [facility] Last Admin: 06/25/16 09:15 Dose: 1 each Heparin Sodium (Porcine) (Heparin -) 5,000 unit SQ BID [facility] Last Admin: 06/25/16 09:15 Dose: 5,000 unit Lactated Ringer's (Lactated Ringers Solution) 1,000 mls @ 125 mls/hr IV ASDIR [facility] Last Admin: 06/25/16 03:45 Dose: Not Given Insulin Human Regular 100 (units/ Sodium Chloride) 100 mls @ 5.74 mls/hr IVPB TITR [facility]; 0.1 UNITS/KG/HR PRN Reason: Protocol Last Admin: 06/25/16 07:00 Dose: Not Given Dextrose/Sodium Chloride (D5-1/2ns -) 1,000 mls @ 100 mls/hr IV ASDIR [facility] Last Admin: 06/25/16 08:44 Dose: 100 mls/hr Insulin Aspart (Novolog Vial Sliding Scale -) 1 vial SQ TIDAC [facility] PRN Reason: Protocol Last Admin: 06/25/16 06:20 Dose: 2 units Insulin Aspart (Novolog Vial Sliding Scale -) 0 vial SQ HS [facility] PRN Reason: Protocol Last Admin: 06/24/16 22:16 Dose: Not Given Insulin Detemir (Levemir Vial) 10 units SQ DAILY@0700 [facility] Last Admin: 06/25/16 06:19 Dose: 10 units Nifedipine (Procardia Xl -) 60 mg PO DAILY [facility] Last Admin: 06/25/16 09:15 Dose: 60 mg Pantoprazole Sodium (Protonix -) 40 mg PO DAILY [facility] Last Admin: 06/25/16 09:15 Dose: 40 mg Polyethylene Glycol (Miralax (For Bowel Prep) -) 17 gm PO HS [facility] Last Admin: 06/24/16 22:15 Dose: 17 gm Silver Sulfadiazine (Silvadene -) 1 applic TP DAILY [facility] Last Admin: 06/25/16 09:16 Dose: 1 applic Sodium Chloride (Normal Saline -) 500 ml IV Q20M PRN PRN Reason: MAP<65mm Hg OR SBP <90 - Objective Vital Signs: Vital Signs Temperature 97.3 F L 06/25/16 10:00 Pulse Rate 94 H 06/25/16 10:00 Respiratory Rate 13 06/25/16 10:00 Blood Pressure 96/52 06/25/16 10:00 O2 Sat by Pulse Oximetry (%) 100 06/25/16 08:00 Constitutional: Yes: Thin Eyes: Yes:open able to track Neck: Yes: WNL Cardiovascular: Yes: tachycardic S1 S2 Respiratory: Yes: CTAB Gastrointestinal: Yes: Normal Bowel Sounds ...Rectal Exam: Yes: Deferred Renal/: Yes: Marquez Present Edema: No Integumentary: Yes: Other (appears dry) Neurological: Yes: awake alert answers yes/no to questions Labs: CBC, BMP 06/24/16 04:00 06/25/16 04:50 INR, PTT INR 0.99 (0.82-1.09) 06/23/16 14:30 Assessment/Plan Pt is an 80yr old man with PMHx of HTN, CAD, DM, Parkinson's disease, dementia and glaucoma. admitted to the ICU for management of uncontrolled glucose, lactic acidosis and ams. likely hyperglycemic hyperosmolar state Pulm: doing well on room air ID: Lactic acidosis. WBC wnl, afebrile -f/u cultures -Will monitor off antibiotics for now elevated lactic acid resolved ID conult appreciated Neuro: AMS-resolved dementia now at baseline Endo: Uncontrolled glucose/HHS -BGM -Glycemic control endocrinology consult appreciated Renal: Elevated BUN/Cr, likely chronic. Baseline unknown -IVF as tolerated -I/Os -Monitor BUN/Cr f/u nephrology -Renal dose medication -Replete electrolytes PRN UA noted urine microscopy pending Cr improving trend CK Cardio BP control control HR Skin: -Continue heel lifts -Wound care Prophylactic -DVT -Continue home PPI transfer to telemetry
--- NOTE | 2016-06-25 11:46 | PN ---
Teaching Attending Note Name of Resident: Junior Reardon ATTENDING PHYSICIAN STATEMENT I saw and evaluated the patient. I reviewed the resident's note and discussed the case with the resident. I agree with the resident's findings and plan as documented. SUBJECTIVE: Patient seen and examined in the ICU. Drowsy but more easily arousable today. Interactive. Intake & Output 06/22/16 06/23/16 06/24/16 06/25/16 23:59 23:59 23:59 23:59 Intake Total 3035 1560 Output Total 200 1400 700 Balance -200 1635 860 Weight 140 lb 126 lb 11.2 oz Last Vital Signs Temp Pulse Resp BP Pulse Ox 97.5 F L 63 14 96/52 100 06/25/16 11:15 06/25/16 11:15 06/25/16 11:15 06/25/16 11:15 06/25/16 08:00 Active Medications Carbidopa/Levodopa (Sinemet 25/100 -) 1 each PO QID [facility] Last Admin: 06/25/16 09:15 Dose: 1 each Heparin Sodium (Porcine) (Heparin -) 5,000 unit SQ BID [facility] Last Admin: 06/25/16 09:15 Dose: 5,000 unit Lactated Ringer's (Lactated Ringers Solution) 1,000 mls @ 125 mls/hr IV ASDIR [facility] Last Admin: 06/25/16 03:45 Dose: Not Given Insulin Human Regular 100 (units/ Sodium Chloride) 100 mls @ 5.74 mls/hr IVPB TITR [facility]; 0.1 UNITS/KG/HR PRN Reason: Protocol Last Admin: 06/25/16 07:00 Dose: Not Given Dextrose/Sodium Chloride (D5-1/2ns -) 1,000 mls @ 100 mls/hr IV ASDIR [facility] Last Admin: 06/25/16 08:44 Dose: 100 mls/hr Insulin Aspart (Novolog Vial Sliding Scale -) 1 vial SQ TIDAC [facility] PRN Reason: Protocol Last Admin: 06/25/16 06:20 Dose: 2 units Insulin Aspart (Novolog Vial Sliding Scale -) 0 vial SQ HS [facility] PRN Reason: Protocol Last Admin: 06/24/16 22:16 Dose: Not Given Insulin Detemir (Levemir Vial) 10 units SQ DAILY@0700 [facility] Last Admin: 06/25/16 06:19 Dose: 10 units Nifedipine (Procardia Xl -) 60 mg PO DAILY [facility] Last Admin: 06/25/16 09:15 Dose: 60 mg Pantoprazole Sodium (Protonix -) 40 mg PO DAILY [facility] Last Admin: 06/25/16 09:15 Dose: 40 mg Polyethylene Glycol (Miralax (For Bowel Prep) -) 17 gm PO HS [facility] Last Admin: 06/24/16 22:15 Dose: 17 gm Silver Sulfadiazine (Silvadene -) 1 applic TP DAILY [facility] Last Admin: 06/25/16 09:16 Dose: 1 applic Sodium Chloride (Normal Saline -) 500 ml IV Q20M PRN PRN Reason: MAP<65mm Hg OR SBP <90 Constitutional: Yes: Drowsy, but arousable Eyes: Yes: (-) Pallor HENT: Yes: Dry membranes Neck: Yes: WNL Cardiovascular: Yes: S1, S2 Respiratory: Yes: Diminished at the bases Gastrointestinal: Yes: Normal Bowel Sounds Renal/: Yes: Marquez Present (yellow output) Musculoskeletal: Yes: Other (some contraction) Extremities: Yes: Other (bilateral heel lifts) Edema: No Peripheral Pulses WNL: Yes (+2 bilateral pedal pulses) Integumentary: Yes: Other (appears dry) Neurological: Yes: Drowsy Labs: IMP: AMS Hypernatremia HTN CAD DM Parkinson's Dementia Glaucoma Lactic acidosis PLAN: IVF O2 as needed Off ABX Glycemic control D/C Protonix 4W/4S monitoring Dr Lindsey CCTime 35" OBJECTIVE: ASSESSMENT AND PLAN:
--- NOTE | 2016-06-25 14:25 | PN ---
Progress Note, Physician History of Present Illness: Pt seen and examined at bedside. He is more interactive than he was yesterday. He remains in the ICU. - Current Medication List Current Medications: Active Medications Carbidopa/Levodopa (Sinemet 25/100 -) 1 each PO QID [facility] Last Admin: 06/25/16 09:15 Dose: 1 each Heparin Sodium (Porcine) (Heparin -) 5,000 unit SQ BID [facility] Last Admin: 06/25/16 09:15 Dose: 5,000 unit Lactated Ringer's (Lactated Ringers Solution) 1,000 mls @ 125 mls/hr IV ASDIR [facility] Last Admin: 06/25/16 03:45 Dose: Not Given Insulin Human Regular 100 (units/ Sodium Chloride) 100 mls @ 5.74 mls/hr IVPB TITR [facility]; 0.1 UNITS/KG/HR PRN Reason: Protocol Last Admin: 06/25/16 07:00 Dose: Not Given Dextrose/Sodium Chloride (D5-1/2ns -) 1,000 mls @ 100 mls/hr IV ASDIR [facility] Last Admin: 06/25/16 08:44 Dose: 100 mls/hr Insulin Aspart (Novolog Vial Sliding Scale -) 1 vial SQ TIDAC [facility] PRN Reason: Protocol Last Admin: 06/25/16 11:30 Dose: 6 units Insulin Aspart (Novolog Vial Sliding Scale -) 0 vial SQ HS [facility] PRN Reason: Protocol Last Admin: 06/24/16 22:16 Dose: Not Given Insulin Detemir (Levemir Vial) 10 units SQ DAILY@0700 [facility] Last Admin: 06/25/16 06:19 Dose: 10 units Nifedipine (Procardia Xl -) 60 mg PO DAILY [facility] Last Admin: 06/25/16 09:15 Dose: 60 mg Polyethylene Glycol (Miralax (For Bowel Prep) -) 17 gm PO HS [facility] Last Admin: 06/24/16 22:15 Dose: 17 gm Ranitidine HCl (Zantac -) 150 mg PO DAILY [facility] Silver Sulfadiazine (Silvadene -) 1 applic TP DAILY [facility] Last Admin: 06/25/16 09:16 Dose: 1 applic Sodium Chloride (Normal Saline -) 500 ml IV Q20M PRN PRN Reason: MAP<65mm Hg OR SBP <90 - Objective Vital Signs: Vital Signs Temperature 98.2 F 06/25/16 14:00 Pulse Rate 62 06/25/16 14:00 Respiratory Rate 15 06/25/16 14:00 Blood Pressure 96/47 06/25/16 14:00 O2 Sat by Pulse Oximetry (%) 100 06/25/16 08:00 Constitutional: Yes: Calm Eyes: Yes: Conjunctiva Clear Cardiovascular: Yes: S1, S2 Respiratory: Yes: On Nasal O2 Gastrointestinal: Yes: Soft Genitourinary: Yes: Marquez Present Musculoskeletal: Yes: Muscle Weakness Edema: No Neurological: Yes: Pre-Existing Deficit Labs: CBC, BMP 06/24/16 04:00 06/25/16 04:50 INR, PTT INR 0.99 (0.82-1.09) 06/23/16 14:30 Assessment/Plan Current Medications Generic Name Dose Route Start Last Admin Trade Name Freq PRN Reason Stop Dose Admin Carbidopa/Levodopa 1 each 06/23/16 22:00 06/25/16 09:15 Sinemet 25/100 - PO 1 each QID [facility] Administration Heparin Sodium (Porcine) 5,000 unit 06/23/16 22:00 06/25/16 09:15 Heparin - SQ 5,000 unit BID [facility] Administration Lactated Ringer's 1,000 mls @ 125 mls/hr 06/24/16 03:45 06/25/16 03:45 Lactated Ringers Solution IV Not Given ASDIR [facility] Insulin Human Regular 100 100 mls @ 5.74 mls/hr 06/24/16 05:45 06/25/16 07:00 units/ Sodium Chloride IVPB Not Given TITR [facility] Protocol 0.1 UNITS/KG/HR Dextrose/Sodium Chloride 1,000 mls @ 100 mls/hr 06/24/16 08:30 06/25/16 08:44 D5-1/2ns - IV 100 mls/hr ASDIR [facility] Administration Insulin Aspart 1 vial 06/24/16 16:30 06/25/16 11:30 Novolog Vial Sliding Scale - SQ 6 units TIDAC [facility] Administration Protocol Insulin Aspart 0 vial 06/24/16 22:00 06/24/16 22:16 Novolog Vial Sliding Scale - SQ Not Given HS [facility] Protocol Insulin Detemir 10 units 06/25/16 07:00 06/25/16 06:19 Levemir Vial SQ 10 units DAILY@0700 [facility] Administration Nifedipine 60 mg 06/24/16 10:00 06/25/16 09:15 Procardia Xl - PO 60 mg DAILY [facility] Administration Polyethylene Glycol 17 gm 06/23/16 22:00 06/24/16 22:15 Miralax (For Bowel Prep) - PO 17 gm HS [facility] Administration Ranitidine HCl 150 mg 06/26/16 10:00 Zantac - PO DAILY [facility] Silver Sulfadiazine 1 applic 06/24/16 10:00 06/25/16 09:16 Silvadene - TP 1 applic DAILY [facility] Administration Sodium Chloride 500 ml 06/23/16 14:29 Normal Saline - IV Q20M PRN MAP<65mm Hg OR SBP <90 Laboratory Tests 06/24/16 06/25/16 08:05 04:50 Creatine Kinase 2908 H D 2767 H Impression 1. PRABHU 2. DM 3. HTN 4. rhabdomyolosis 5. dementia 6. parkinsons 7. CAD 8. likely CKD Plan - renal function continues to improve - sodium continues to improve - cont with hypotonic fluid - pt likely has PRABHU on CKD - potassium levels are improved - CK level is starting to improve - check CK levels - will follow pt Dr Mcmanus
[2016-06-25] MEDS: POLYETHYLENE GLYCOL 3350 255 GM BTL PO SCH (22:01)
[2016-06-26] MEDS: DEXTROSE 5%-0.45% SALINE 1,000 ML IV SCH ×2 (03:38→10:00)
[2016-06-26 05:53] LABS: MCHC 32.9 g/dl (32.0-35.9); MEAN CELL VOLUME 88.2 fl (80-96); MEAN PLT VOLUME 9.6 fl (7.5-11.1); PLATELET COUNT 113 K/MM3 (134-434); RDW 13.4 % (11.9-15.9); WHITE BLOOD COUNT 5.9 K/mm3 (4.0-10.0)
[2016-06-26 06:20] LABS: CALCIUM 7.5 mg/dL (8.5-10.1); CREATININE 1.7 mg/dL (0.7-1.3)
[2016-06-26] MEDS: INSULIN SLIDING SCALE (NOVOLOG) 1 VIAL SQ SCH ×4 (06:32→22:02)
[2016-06-26] MEDS: INSULIN DETEMIR 100 UNITS/ML MDV SQ SCH (06:32)
[2016-06-26] MEDS ORDERED: PT OWN MED DRAWER 7, Y5N ONE (08:49)
--- NOTE | 2016-06-26 08:51 | PN ---
Progress Note (short form) - Note Progress Note: Patient seen and examined in the ICU. More awake and alert. Able to answer some questions appropriately. Better oral intake. Denies CP or SOB. Intake & Output 06/23/16 06/24/16 06/25/16 06/26/16 23:59 23:59 23:59 23:59 Intake Total 3035 2160 750 Output Total 200 1400 1500 900 Balance -200 1635 660 -150 Weight 140 lb 126 lb 11.2 oz 129 lb 12.8 oz Last Vital Signs Temp Pulse Resp BP Pulse Ox 99.3 F 75 18 178/76 100 06/26/16 06:00 06/26/16 06:00 06/26/16 06:00 06/26/16 06:00 06/25/16 21:00 Active Medications Carbidopa/Levodopa (Sinemet 25/100 -) 1 each PO QID [facility] Last Admin: 06/25/16 21:58 Dose: 1 each Heparin Sodium (Porcine) (Heparin -) 5,000 unit SQ BID [facility] Last Admin: 06/25/16 21:57 Dose: 5,000 unit Lactated Ringer's (Lactated Ringers Solution) 1,000 mls @ 125 mls/hr IV ASDIR [facility] Last Admin: 06/25/16 03:45 Dose: Not Given Insulin Human Regular 100 (units/ Sodium Chloride) 100 mls @ 5.74 mls/hr IVPB TITR [facility]; 0.1 UNITS/KG/HR PRN Reason: Protocol Last Admin: 06/25/16 07:00 Dose: Not Given Dextrose/Sodium Chloride (D5-1/2ns -) 1,000 mls @ 100 mls/hr IV ASDIR [facility] Last Admin: 06/26/16 03:38 Dose: 100 mls/hr Insulin Aspart (Novolog Vial Sliding Scale -) 1 vial SQ TIDAC [facility] PRN Reason: Protocol Last Admin: 06/26/16 06:32 Dose: 4 units Insulin Aspart (Novolog Vial Sliding Scale -) 0 vial SQ HS [facility] PRN Reason: Protocol Last Admin: 06/25/16 23:30 Dose: 6 units Insulin Detemir (Levemir Vial) 10 units SQ DAILY@0700 [facility] Last Admin: 06/26/16 06:32 Dose: 10 units Nifedipine (Procardia Xl -) 60 mg PO DAILY [facility] Last Admin: 06/25/16 09:15 Dose: 60 mg Polyethylene Glycol (Miralax (For Bowel Prep) -) 17 gm PO HS [facility] Last Admin: 06/25/16 22:01 Dose: 17 gm Ranitidine HCl (Zantac -) 150 mg PO DAILY [facility] Silver Sulfadiazine (Silvadene -) 1 applic TP DAILY [facility] Last Admin: 06/25/16 09:16 Dose: 1 applic Sodium Chloride (Normal Saline -) 500 ml IV Q20M PRN PRN Reason: MAP<65mm Hg OR SBP <90 Constitutional: Yes: Awake and interactive Eyes: Yes: (-) Pallor HENT: Yes: Dry membranes Neck: Yes: WNL Cardiovascular: Yes: S1, S2 Respiratory: Yes: Diminished at the bases Gastrointestinal: Yes: Normal Bowel Sounds Renal/: Yes: Marquez Present (yellow output) Musculoskeletal: Yes: Other (some contraction) Extremities: Yes: Other (bilateral heel lifts) Edema: No Peripheral Pulses WNL: Yes (+2 bilateral pedal pulses) Integumentary: Yes: Other (appears dry) Neurological: Yes: Drowsy Labs: Laboratory Results - last 24 hr 06/25/16 06/25/16 06/25/16 05:47 07:00 11:48 WBC RBC Hgb Hct MCV MCHC RDW Plt Count MPV Sodium Potassium Chloride Carbon Dioxide Anion Gap BUN Creatinine POC Glucometer [phone] Random Glucose Calcium Creatine Kinase Creatine Kinase Index CK-MB (CK-2) CK-MB (CK-2) Rel Index Urine Color Straw Urine Appearance Clear Urine pH 5.0 Ur Specific [place] 1.012 Urine Protein 1+ H Urine Glucose (UA) 2+ H Urine Ketones Negative Urine Blood 3+ H Urine Nitrite Negative Urine Bilirubin Negative Urine Urobilinogen Negative Ur Leukocyte Esterase Negative Urine RBC 12 Urine WBC <1 Urine Mucus Rare 06/25/16 06/26/16 06/26/16 17:28 00:17 05:15 WBC 5.9 RBC 3.57 L Hgb 10.3 L Hct 31.4 L MCV 88.2 MCHC 32.9 RDW 13.4 Plt Count 113 L D MPV 9.6 Sodium Potassium Chloride Carbon Dioxide Anion Gap BUN Creatinine POC Glucometer [phone] Random Glucose Calcium Creatine Kinase Creatine Kinase Index CK-MB (CK-2) CK-MB (CK-2) Rel Index Urine Color Urine Appearance Urine pH Ur Specific [place] Urine Protein Urine Glucose (UA) Urine Ketones Urine Blood Urine Nitrite Urine Bilirubin Urine Urobilinogen Ur Leukocyte Esterase Urine RBC Urine WBC Urine Mucus 06/26/16 06/26/16 05:15 05:15 WBC RBC Hgb Hct MCV MCHC RDW Plt Count MPV Sodium 145 Potassium 3.8 Chloride 110 H Carbon Dioxide 26 Anion Gap 9 BUN 33 H D Creatinine 1.7 H POC Glucometer Random Glucose 238 H D Calcium 7.5 L Creatine Kinase 1562 H D Creatine Kinase Index 0.5 CK-MB (CK-2) 7.742 H CK-MB (CK-2) Rel Index Cancelled Urine Color Urine Appearance Urine pH Ur Specific [place] Urine Protein Urine Glucose (UA) Urine Ketones Urine Blood Urine Nitrite Urine Bilirubin Urine Urobilinogen Ur Leukocyte Esterase Urine RBC Urine WBC Urine Mucus IMP: AMS Hypernatremia HTN CAD DM Parkinson's Dementia Glaucoma Lactic acidosis PLAN: Decrease IVF O2 as needed Off ABX Glycemic control PO as tolerated Aspiration precautions 4W/4S monitoring Dr Lindsey CCTime 35"
[2016-06-26] MEDS: CARBIDOPA/LEVODOPA 25/100 TABLET (FP) PO SCH ×4 (09:32→22:02)
[2016-06-26] MEDS: NIFEdipine E.R 60 MG TABLET (UD) PO SCH (09:32)
[2016-06-26] MEDS: HEPARIN NA (PORCINE) 5,000 UNITS/ML 1ML VIAL SQ SCH ×2 (09:32→22:01)
[2016-06-26] MEDS: SILVER SULFADIAZINE 1% TOP CREAM 50 GM JAR TP SCH (09:33)
[2016-06-26] MEDS: RANITIDINE HCL 150 MG TABLET (FP) PO SCH (09:37)
--- NOTE | 2016-06-26 10:26 | PN ---
Progress Note (short form) - Note Progress Note: RENAL Pt is awake and alert very tremulous causing his monitor to show tachycardia Last Vital Signs Temp Pulse Resp BP Pulse Ox 99.3 F 87 16 125/54 100 06/26/16 06:00 06/26/16 10:00 06/26/16 10:00 06/26/16 10:00 06/26/16 09:00 lungs clear anteriorly cvs s1s2 rr abd soft ext no edema CBC, BMP 06/26/16 05:15 06/26/16 05:15 Current Medications Generic Name Dose Route Start Last Admin Trade Name Freq PRN Reason Stop Dose Admin Carbidopa/Levodopa 1 each 06/23/16 22:00 06/26/16 09:32 Sinemet 25/100 - PO 1 each QID [facility] Administration Heparin Sodium (Porcine) 5,000 unit 06/23/16 22:00 06/26/16 09:32 Heparin - SQ 5,000 unit BID [facility] Administration Lactated Ringer's 1,000 mls @ 125 mls/hr 06/24/16 03:45 06/25/16 03:45 Lactated Ringers Solution IV Not Given ASDIR [facility] Insulin Human Regular 100 100 mls @ 5.74 mls/hr 06/24/16 05:45 06/25/16 07:00 units/ Sodium Chloride IVPB Not Given TITR [facility] Protocol 0.1 UNITS/KG/HR Dextrose/Sodium Chloride 1,000 mls @ 100 mls/hr 06/24/16 08:30 06/26/16 03:38 D5-1/2ns - IV 100 mls/hr ASDIR [facility] Administration Insulin Aspart 1 vial 06/24/16 16:30 06/26/16 06:32 Novolog Vial Sliding Scale - SQ 4 units TIDAC [facility] Administration Protocol Insulin Aspart 0 vial 06/24/16 22:00 06/25/16 23:30 Novolog Vial Sliding Scale - SQ 6 units HS [facility] Administration Protocol Insulin Detemir 10 units 06/25/16 07:00 06/26/16 06:32 Levemir Vial SQ 10 units DAILY@0700 [facility] Administration Nifedipine 60 mg 06/24/16 10:00 06/26/16 09:32 Procardia Xl - PO 60 mg DAILY [facility] Administration Polyethylene Glycol 17 gm 06/23/16 22:00 06/25/16 22:01 Miralax (For Bowel Prep) - PO 17 gm HS [facility] Administration Ranitidine HCl 150 mg 06/26/16 10:00 06/26/16 09:37 Zantac - PO 150 mg DAILY [facility] Administration Silver Sulfadiazine 1 applic 06/24/16 10:00 06/26/16 09:33 Silvadene - TP 1 applic DAILY [facility] Administration Sodium Chloride 500 ml 06/23/16 14:29 Normal Saline - IV Q20M PRN MAP<65mm Hg OR SBP <90 Impression 1. PRABHU- prerenal, renal sono no obstruction 2. DM 3. HTN 4. rhabdomyolosis- mild 5. dementia 6. parkinsons 7. CAD 8. likely CKD- does have some proteinuria Plan would continue fluid monitor renal function and avoid nephrotoxic agents agree with h2 verna over ppi given risk of ain with ppi MV
--- NOTE | 2016-06-26 11:07 | PN ---
Progress Note, Physician History of Present Illness: 80 year old male with pmhx of DM, CAD, HTN, Parkinsons and dementia who was sent in to the ER from [facility] for altered mental status and elevated blood sugar. He was found to be hyperglycemic in the ER. He is unable to give history. He responds to simple questions. - Current Medication List Current Medications: Active Medications Carbidopa/Levodopa (Sinemet 25/100 -) 1 each PO QID [facility] Last Admin: 06/26/16 09:32 Dose: 1 each Heparin Sodium (Porcine) (Heparin -) 5,000 unit SQ BID [facility] Last Admin: 06/26/16 09:32 Dose: 5,000 unit Lactated Ringer's (Lactated Ringers Solution) 1,000 mls @ 125 mls/hr IV ASDIR [facility] Last Admin: 06/25/16 03:45 Dose: Not Given Insulin Human Regular 100 (units/ Sodium Chloride) 100 mls @ 5.74 mls/hr IVPB TITR [facility]; 0.1 UNITS/KG/HR PRN Reason: Protocol Last Admin: 06/25/16 07:00 Dose: Not Given Dextrose/Sodium Chloride (D5-1/2ns -) 1,000 mls @ 100 mls/hr IV ASDIR [facility] Last Admin: 06/26/16 03:38 Dose: 100 mls/hr Insulin Aspart (Novolog Vial Sliding Scale -) 1 vial SQ TIDAC [facility] PRN Reason: Protocol Last Admin: 06/26/16 11:05 Dose: 4 units Insulin Aspart (Novolog Vial Sliding Scale -) 0 vial SQ HS [facility] PRN Reason: Protocol Last Admin: 06/25/16 23:30 Dose: 6 units Insulin Detemir (Levemir Vial) 10 units SQ DAILY@0700 [facility] Last Admin: 06/26/16 06:32 Dose: 10 units Nifedipine (Procardia Xl -) 60 mg PO DAILY [facility] Last Admin: 06/26/16 09:32 Dose: 60 mg Polyethylene Glycol (Miralax (For Bowel Prep) -) 17 gm PO HS [facility] Last Admin: 06/25/16 22:01 Dose: 17 gm Ranitidine HCl (Zantac -) 150 mg PO DAILY [facility] Last Admin: 06/26/16 09:37 Dose: 150 mg Silver Sulfadiazine (Silvadene -) 1 applic TP DAILY [facility] Last Admin: 06/26/16 09:33 Dose: 1 applic Sodium Chloride (Normal Saline -) 500 ml IV Q20M PRN PRN Reason: MAP<65mm Hg OR SBP <90 - Objective Vital Signs: Vital Signs Temperature 99.5 F 06/26/16 10:00 Pulse Rate 87 06/26/16 10:00 Respiratory Rate 16 06/26/16 10:00 Blood Pressure 125/54 06/26/16 10:00 O2 Sat by Pulse Oximetry (%) 100 06/26/16 09:00 Cardiovascular: Yes: Regular Rate and Rhythm Respiratory: Yes: Regular, CTA Bilaterally Gastrointestinal: Yes: Normal Bowel Sounds, Soft Edema: No Neurological: Yes: Alert, Tremors Labs: CBC, BMP 06/26/16 05:15 06/26/16 05:15 INR, PTT INR 0.99 (0.82-1.09) 06/23/16 14:30 Assessment/Plan HYPEROSMOLAR SYNDROME : IVF, SSI, BGM ENDOCRINE CONSULT ICU ACUTE RENAL FAILURE: RENAL CONSULT HOLD ANY NEPHROTOXIC MEDICATIONS IVF R/O SEPSIS: LACTIC ACID ELEVATE BLOOD AND URINE CULTURES ID --Continue to observe off antibiotics IVF CVA/DEMENTIA: BASELINE AT THIS TIME NEUROCHECKS
--- NOTE | 2016-06-26 11:32 | PN ---
Progress Note (short form) - Note Progress Note: Awake, responsive Denies any complaints Blood sugar fluctuating Vital Signs Period Temp Pulse Resp BP Sys/Dumont Pulse Ox Last 24 Hr 97.7 F-99.5 F 62-99 15-20 96-192/47-78 100-100 PE; Awake, responds to verbal commands Neck: Supple, No JVD Lungs: CTA CVS: S1S2 Abd: Benign EXt: No Edema CMP Sodium 145 mmol/L (136-145) 06/26/16 05:15 Potassium 3.8 mmol/L (3.5-5.1) 06/26/16 05:15 Chloride 110 mmol/L (98-107) H 06/26/16 05:15 Carbon Dioxide 26 mmol/L (21-32) 06/26/16 05:15 Anion Gap 9 (8-16) 06/26/16 05:15 BUN 33 mg/dL (7-18) H D 06/26/16 05:15 Creatinine 1.7 mg/dL (0.7-1.3) H 06/26/16 05:15 Creat Clearance w eGFR 32.48 (>60) 06/25/16 04:50 POC Glucometer 336.72695 UNITS (()) 06/26/16 00:17 Random Glucose 238 mg/dL (74-106) H D 06/26/16 05:15 Hemoglobin A1c % 10.2 % (4.8-6.0) H 06/24/16 11:35 Lactic Acid 1.512 mmol/L (0.4-2.0) 06/24/16 04:20 Calcium 7.5 mg/dL (8.5-10.1) L 06/26/16 05:15 Phosphorus 2.8 mg/dL (2.5-4.9) 06/24/16 04:00 Magnesium 2.3 mg/dL (1.8-2.4) 06/24/16 04:00 Total Bilirubin 0.7 mg/dL (0.2-1.0) 06/25/16 04:50 AST 90 U/L (15-37) H D 06/25/16 04:50 ALT 12 U/L (12-78) 06/25/16 04:50 Alkaline Phosphatase 74 U/L (45-117) D 06/25/16 04:50 Creatine Kinase 1562 IU/L (39-308) H D 06/26/16 05:15 Creatine Kinase Index 0.5 % (0.0-5.0) 06/26/16 05:15 CK-MB (CK-2) 7.742 ng/ml (0.5-3.6) H 06/26/16 05:15 CK-MB (CK-2) Rel Index Cancelled 06/23/16 14:30 Troponin I 0.08 ng/ml (0.00-0.05) H D 06/24/16 08:05 B-Natriuretic Peptide 463.06 pg/ml (5-450) H 06/24/16 04:00 Total Protein 5.9 g/dl (6.4-8.2) L 06/25/16 04:50 Albumin 2.8 g/dl (3.4-5.0) L 06/25/16 04:50 Current Medications Generic Name Dose Route Start Last Admin Trade Name Freq PRN Reason Stop Dose Admin Carbidopa/Levodopa 1 each 06/23/16 22:00 06/26/16 09:32 Sinemet 25/100 - PO 1 each QID [facility]ICA Administration Heparin Sodium (Porcine) 5,000 unit 06/23/16 22:00 06/26/16 09:32 Heparin - SQ 5,000 unit BID VER[facility]NICA Administration Dextrose/Sodium Chloride 1,000 mls @ 100 mls/hr 06/24/16 08:30 06/26/16 03:38 D5-1/2ns - IV 100 mls/hr ASDIR VERÓNICA Administration Insulin Aspart 1 vial 06/24/16 16:30 06/26/16 11:05 Novolog Vial Sliding Scale - SQ 4 units TIDAC [facility]ICA Administration Protocol Insulin Aspart 0 vial 06/24/16 22:00 06/25/16 23:30 Novolog Vial Sliding Scale - SQ 6 units HS [facility] Administration Protocol Insulin Detemir 10 units 06/25/16 07:00 06/26/16 06:32 Levemir Vial SQ 10 units DAILY@0700 [facility]ICA Administration Nifedipine 60 mg 06/24/16 10:00 06/26/16 09:32 Procardia Xl - PO 60 mg DAILY [facility] Administration Polyethylene Glycol 17 gm 06/23/16 22:00 06/25/16 22:01 Miralax (For Bowel Prep) - PO 17 gm HS [facility]ICA Administration Ranitidine HCl 150 mg 06/26/16 10:00 06/26/16 09:37 Zantac - PO 150 mg DAILY [facility] Administration Silver Sulfadiazine 1 applic 06/24/16 10:00 06/26/16 09:33 Silvadene - TP 1 applic DAILY [facility]ICA Administration Sodium Chloride 500 ml 06/23/16 14:29 Normal Saline - IV Q20M PRN MAP<65mm Hg OR SBP <90 Hyperglycemic Hyperosmolar state resolved DM Increase Levemir to 12 units daily Increase Novolog coverage QACHS P.O intake poor IV hydration as necessary Parkinson's disease Dementia HTN Lactic Acidosis
[2016-06-26] MEDS: LACTATED RINGERS SOLUTION 1,000 ML IV SCH (18:09)
[2016-06-26] MEDS: INSULIN REGULAR 100 UNITS in SODIUM CHLORIDE 99 ML IVPB SCH (18:09)
[2016-06-26] MEDS: POLYETHYLENE GLYCOL 3350 255 GM BTL PO SCH (22:09)
[2016-06-27 06:01] LABS: MCH 29.1 pg (25.7-33.7); MEAN CELL VOLUME 88.3 fl (80-96); MEAN PLT VOLUME 9.5 fl (7.5-11.1); PLATELET COUNT 100 K/MM3 (134-434); RDW 13.3 % (11.9-15.9); WHITE BLOOD COUNT 5.5 K/mm3 (4.0-10.0)
[2016-06-27 06:36] LABS: CALCIUM 7.8 mg/dL (8.5-10.1); CREATININE 1.6 mg/dL (0.7-1.3); MAGNESIUM 1.8 mg/dL (1.8-2.4); PHOSPHOROUS 1.9 mg/dL (2.5-4.9)
[2016-06-27] MEDS: INSULIN DETEMIR 100 UNITS/ML MDV SQ SCH (06:40)
[2016-06-27] MEDS: INSULIN SLIDING SCALE (NOVOLOG) 1 VIAL SQ SCH ×4 (06:40→21:27)
--- NOTE | 2016-06-27 08:02 | PN ---
Progress Note (short form) - Note Progress Note: 24HR events -improved mental status -stable overnight Vital Signs Temp 98.4 F 06/27/16 06:00 Pulse 82 06/27/16 06:00 Resp 20 06/27/16 06:00 BP 149/97 06/27/16 06:00 Pulse Ox 100 06/26/16 21:00 Intake & Output 06/26/16 06/26/16 06/27/16 11:59 23:59 11:59 Intake Total 960 1950 450 Output Total 900 1000 1500 Balance 60 950 -1050 Weight 58.876 kg 59.33 kg Intake: IV 710 1050 350 D5-1/2Ns - 1,000 ml @ 50 700 1050 350 mls/hr IV ASDIR [facility] Rx#: [id number] n/s lock rfa 06/23 10 Oral 250 900 100 Output: Urine 900 1000 1500 Marquez 900 1000 1500 Other: Voiding Method Indwelling Catheter Indwelling Catheter Bowel Movement No Weight Measurement Method [facility] Current Medications Carbidopa/Levodopa (Sinemet 25/100 -) 1 each PO QID [facility] Last Admin: 06/26/16 22:02 Dose: 1 each Heparin Sodium (Porcine) (Heparin -) 5,000 unit SQ BID [facility] Last Admin: 06/26/16 22:01 Dose: 5,000 unit Dextrose/Sodium Chloride (D5-1/2ns -) 1,000 mls @ 50 mls/hr IV ASDIR [facility] Last Admin: 06/26/16 10:00 Dose: 50 mls/hr Insulin Aspart (Novolog Vial Sliding Scale -) 0 vial SQ HS [facility] PRN Reason: Protocol Last Admin: 06/26/16 22:02 Dose: 4 units Insulin Aspart (Novolog Vial Sliding Scale -) 1 vial SQ TIDAC [facility] PRN Reason: Protocol Last Admin: 06/27/16 06:40 Dose: 6 units Insulin Detemir (Levemir Vial) 12 units SQ DAILY@0700 [facility] Last Admin: 06/27/16 06:40 Dose: 12 units Nifedipine (Procardia Xl -) 60 mg PO DAILY [facility] Last Admin: 06/26/16 09:32 Dose: 60 mg Polyethylene Glycol (Miralax (For Bowel Prep) -) 17 gm PO HS [facility] Last Admin: 06/26/16 22:09 Dose: 17 gm Ranitidine HCl (Zantac -) 150 mg PO DAILY [facility] Last Admin: 06/26/16 09:37 Dose: 150 mg Silver Sulfadiazine (Silvadene -) 1 applic TP DAILY [facility] Last Admin: 06/26/16 09:33 Dose: 1 applic Sodium Chloride (Normal Saline -) 500 ml IV Q20M PRN PRN Reason: MAP<65mm Hg OR SBP <90 CBC, BMP 06/27/16 05:15 06/27/16 05:15 Constitutional: Yes: Awake and interactive Eyes: Yes: (-) Pallor HENT: Yes: Dry membranes Neck: Yes: WNL Cardiovascular: Yes: S1, S2 Respiratory: Yes: Diminished at the bases ,no wheeze or distress Gastrointestinal: Yes: Normal Bowel Sounds Renal/: Yes: Marquez Present (yellow output) Musculoskeletal: Yes: Other (some contraction) Extremities: Yes: Other (bilateral heel lifts) Edema: No Peripheral Pulses WNL: Yes (+2 bilateral pedal pulses) Integumentary: Yes: Other (appears dry) Neurological: Yes: awake, follows and answers appropriately L IMP: AMS -resoloved Hypernatremia HTN CAD DM Parkinson's Dementia Glaucoma Lactic acidosis resolove PLAN: O2 as needed Off ABX Glycemic control PO as tolerated Aspiration precautions 4W/4S monitoring Sin [facility] [id number]
[2016-06-27] MEDS: NIFEdipine E.R 60 MG TABLET (UD) PO SCH (09:49)
[2016-06-27] MEDS: CARBIDOPA/LEVODOPA 25/100 TABLET (FP) PO SCH ×4 (09:49→21:27)
[2016-06-27] MEDS: HEPARIN NA (PORCINE) 5,000 UNITS/ML 1ML VIAL SQ SCH ×2 (09:49→21:27)
[2016-06-27] MEDS: RANITIDINE HCL 150 MG TABLET (FP) PO SCH (09:49)
[2016-06-27] MEDS: SILVER SULFADIAZINE 1% TOP CREAM 50 GM JAR TP SCH (09:50)
[2016-06-27] MEDS: DEXTROSE 5%-0.45% SALINE 1,000 ML IV SCH (09:51)
--- NOTE | 2016-06-27 10:26 | PN ---
Progress Note, Physician History of Present Illness: 80 year old male with pmhx of DM, CAD, HTN, Parkinsons and dementia who was sent in to the ER from [facility] for altered mental status and elevated blood sugar. He was found to be hyperglycemic in the ER. He is unable to give history. He responds to simple questions. - Current Medication List Current Medications: Active Medications Carbidopa/Levodopa (Sinemet 25/100 -) 1 each PO QID [facility] Last Admin: 06/27/16 09:49 Dose: 1 each Heparin Sodium (Porcine) (Heparin -) 5,000 unit SQ BID [facility] Last Admin: 06/27/16 09:49 Dose: 5,000 unit Dextrose/Sodium Chloride (D5-1/2ns -) 1,000 mls @ 50 mls/hr IV ASDIR [facility] Last Admin: 06/27/16 09:51 Dose: 50 mls/hr Insulin Aspart (Novolog Vial Sliding Scale -) 0 vial SQ HS [facility] PRN Reason: Protocol Last Admin: 06/26/16 22:02 Dose: 4 units Insulin Aspart (Novolog Vial Sliding Scale -) 1 vial SQ TIDAC [facility] PRN Reason: Protocol Last Admin: 06/27/16 06:40 Dose: 6 units Insulin Detemir (Levemir Vial) 12 units SQ DAILY@0700 [facility] Last Admin: 06/27/16 06:40 Dose: 12 units Nifedipine (Procardia Xl -) 60 mg PO DAILY [facility] Last Admin: 06/27/16 09:49 Dose: 60 mg Polyethylene Glycol (Miralax (For Bowel Prep) -) 17 gm PO HS [facility] Last Admin: 06/26/16 22:09 Dose: 17 gm Ranitidine HCl (Zantac -) 150 mg PO DAILY [facility] Last Admin: 06/27/16 09:49 Dose: 150 mg Silver Sulfadiazine (Silvadene -) 1 applic TP DAILY [facility] Last Admin: 06/27/16 09:50 Dose: 1 applic Sodium Chloride (Normal Saline -) 500 ml IV Q20M PRN PRN Reason: MAP<65mm Hg OR SBP <90 - Objective Vital Signs: Vital Signs Temperature 98.4 F 06/27/16 06:00 Pulse Rate 68 06/27/16 09:50 Respiratory Rate 20 06/27/16 06:00 Blood Pressure 149/97 06/27/16 06:00 O2 Sat by Pulse Oximetry (%) 99 06/27/16 09:50 Cardiovascular: Yes: S1, S2 Respiratory: Yes: Diminished, On Nasal O2 Gastrointestinal: Yes: Normal Bowel Sounds, Soft Labs: CBC, BMP 06/27/16 05:15 06/27/16 05:15 INR, PTT INR 0.99 (0.82-1.09) 06/23/16 14:30 Assessment/Plan HYPEROSMOLAR SYNDROME : IVF, SSI, BGM Laboratory Tests 06/26/16 06/27/16 06/27/16 21:08 05:15 05:46 BUN 23 H D Creatinine 1.6 H POC Glucometer 264.25806 206.37139 Random Glucose 222 H ENDOCRINE CONSULT ICU ACUTE RENAL FAILURE: RENAL CONSULT HOLD ANY NEPHROTOXIC MEDICATIONS IVF R/O SEPSIS: LACTIC ACID ELEVATE BLOOD AND URINE CULTURES ID --Continue to observe off antibiotics IVF CVA/DEMENTIA: BASELINE AT THIS TIME NEUROCHECKS
--- NOTE | 2016-06-27 12:29 | PN ---
Progress Note (short form) - Note Progress Note: RENAL Pt is awake and alert very tremulous causing his monitor to show tachycardia Last Vital Signs Temp Pulse Resp BP Pulse Ox 98 F 73 19 138/72 100 06/27/16 10:00 06/27/16 12:00 06/27/16 12:00 06/27/16 12:00 06/27/16 11:18 lungs clear anteriorly cvs s1s2 rr abd soft ext no edema CBC, BMP 06/27/16 05:15 06/27/16 05:15 Current Medications Current Medications Generic Name Dose Route Start Last Admin Trade Name Freq PRN Reason Stop Dose Admin Carbidopa/Levodopa 1 each 06/23/16 22:00 06/27/16 09:49 Sinemet 25/100 - PO 1 each QID [facility]ICA Administration Heparin Sodium (Porcine) 5,000 unit 06/23/16 22:00 06/27/16 09:49 Heparin - SQ 5,000 unit BID [facility] Administration Dextrose/Sodium Chloride 1,000 mls @ 50 mls/hr 06/24/16 08:30 06/27/16 09:51 D5-1/2ns - IV 50 mls/hr ASDIR [facility]NICA Administration Insulin Aspart 0 vial 06/24/16 22:00 06/26/16 22:02 Novolog Vial Sliding Scale - SQ 4 units HS [facility] Administration Protocol Insulin Aspart 1 vial 06/26/16 11:31 06/27/16 11:23 Novolog Vial Sliding Scale - SQ 8 units TIDAC [facility] Administration Protocol Insulin Detemir 12 units 06/27/16 07:00 06/27/16 06:40 Levemir Vial SQ 12 units DAILY@0700 [facility] Administration Nifedipine 60 mg 06/24/16 10:00 06/27/16 09:49 Procardia Xl - PO 60 mg DAILY [facility] Administration Polyethylene Glycol 17 gm 06/23/16 22:00 06/26/16 22:09 Miralax (For Bowel Prep) - PO 17 gm HS [facility]ICA Administration Ranitidine HCl 150 mg 06/26/16 10:00 06/27/16 09:49 Zantac - PO 150 mg DAILY [facility] Administration Silver Sulfadiazine 1 applic 06/24/16 10:00 06/27/16 09:50 Silvadene - TP 1 applic DAILY [facility] Administration Sodium Chloride 500 ml 06/23/16 14:29 Normal Saline - IV Q20M PRN MAP<65mm Hg OR SBP <90 Impression 1. PRABHU- prerenal, renal sono no obstruction 2. DM 3. HTN 4. rhabdomyolosis- mild 5. dementia 6. parkinsons 7. CAD 8. likely CKD- does have some proteinuria Plan would continue fluid monitor renal function and avoid nephrotoxic agents agree with h2 verna over ppi given risk of ain with ppi MV
--- NOTE | 2016-06-27 15:19 | PN ---
Progress Note (short form) - Note Progress Note: Awake, responsive Denies any complaints Blood sugar 200s Apetite good Vital Signs Period Temp Pulse Resp BP Sys/Dumont Pulse Ox Last 24 Hr 98 F-99 F 68-85 13-20 118-177/54-97 98-100 PE; Awake, responds to verbal commands Neck: Supple, No JVD Lungs: CTA CVS: S1S2 Abd: Benign EXt: No Edema CMP Sodium 143 mmol/L (136-145) 06/27/16 05:15 Potassium 4.1 mmol/L (3.5-5.1) 06/27/16 05:15 Chloride 106 mmol/L (98-107) 06/27/16 05:15 Carbon Dioxide 29 mmol/L (21-32) 06/27/16 05:15 Anion Gap 8 (8-16) 06/27/16 05:15 BUN 23 mg/dL (7-18) H D 06/27/16 05:15 Creatinine 1.6 mg/dL (0.7-1.3) H 06/27/16 05:15 Creat Clearance w eGFR 32.48 (>60) 06/25/16 04:50 POC Glucometer 253.76180 UNITS (()) 06/27/16 11:20 Random Glucose 222 mg/dL (74-106) H 06/27/16 05:15 Hemoglobin A1c % 10.2 % (4.8-6.0) H 06/24/16 11:35 Lactic Acid 1.512 mmol/L (0.4-2.0) 06/24/16 04:20 Calcium 7.8 mg/dL (8.5-10.1) L 06/27/16 05:15 Phosphorus 1.9 mg/dL (2.5-4.9) L D 06/27/16 05:15 Magnesium 1.8 mg/dL (1.8-2.4) D 06/27/16 05:15 Total Bilirubin 0.7 mg/dL (0.2-1.0) 06/25/16 04:50 AST 90 U/L (15-37) H D 06/25/16 04:50 ALT 12 U/L (12-78) 06/25/16 04:50 Alkaline Phosphatase 74 U/L (45-117) D 06/25/16 04:50 Creatine Kinase 1562 IU/L (39-308) H D 06/26/16 05:15 Creatine Kinase Index 0.5 % (0.0-5.0) 06/26/16 05:15 CK-MB (CK-2) 7.742 ng/ml (0.5-3.6) H 06/26/16 05:15 CK-MB (CK-2) Rel Index Cancelled 06/23/16 14:30 Troponin I 0.08 ng/ml (0.00-0.05) H D 06/24/16 08:05 B-Natriuretic Peptide 463.06 pg/ml (5-450) H 06/24/16 04:00 Total Protein 5.9 g/dl (6.4-8.2) L 06/25/16 04:50 Albumin 2.8 g/dl (3.4-5.0) L 06/25/16 04:50 Hyperglycemic Hyperosmolar state resolved DM: A1C 10.2 Levemir to 12 units daily Increase Novolog coverage QACHS P.O intake good today IV hydration as necessary Parkinson's disease Dementia HTN Lactic Acidosis
[2016-06-27] MEDS: POLYETHYLENE GLYCOL 3350 255 GM BTL PO SCH (21:28)
[2016-06-28 05:36] LABS: MCHC 32.9 g/dl (32.0-35.9); MEAN CELL VOLUME 88.1 fl (80-96); MEAN PLT VOLUME 9.5 fl (7.5-11.1); PLATELET COUNT 106 K/MM3 (134-434); RDW 13.1 % (11.9-15.9); WHITE BLOOD COUNT 5.6 K/mm3 (4.0-10.0)
[2016-06-28] MEDS: INSULIN DETEMIR 100 UNITS/ML MDV SQ SCH (06:06)
[2016-06-28] MEDS: INSULIN SLIDING SCALE (NOVOLOG) 1 VIAL SQ SCH ×4 (06:06→22:21)
[2016-06-28 06:26] LABS: CALCIUM 8.1 mg/dL (8.5-10.1); CREATININE 1.6 mg/dL (0.7-1.3)
--- NOTE | 2016-06-28 09:38 | PN ---
Progress Note, Physician Chief Complaint: AWAKE ALERT X 2 FEELING BETTER - Current Medication List Current Medications: Active Medications Carbidopa/Levodopa (Sinemet 25/100 -) 1 each PO QID [facility] Last Admin: 06/27/16 21:27 Dose: 1 each Heparin Sodium (Porcine) (Heparin -) 5,000 unit SQ BID [facility] Last Admin: 06/27/16 21:27 Dose: 5,000 unit Dextrose/Sodium Chloride (D5-1/2ns -) 1,000 mls @ 50 mls/hr IV ASDIR [facility] Last Admin: 06/27/16 09:51 Dose: 50 mls/hr Insulin Aspart (Novolog Vial Sliding Scale -) 0 vial SQ HS [facility] PRN Reason: Protocol Last Admin: 06/27/16 21:27 Dose: Not Given Insulin Aspart (Novolog Vial Sliding Scale -) 1 vial SQ TIDAC [facility] PRN Reason: Protocol Last Admin: 06/28/16 06:06 Dose: 12 units Insulin Detemir (Levemir Vial) 12 units SQ DAILY@0700 [facility] Last Admin: 06/28/16 06:06 Dose: 12 units Nifedipine (Procardia Xl -) 60 mg PO DAILY [facility] Last Admin: 06/27/16 09:49 Dose: 60 mg Polyethylene Glycol (Miralax (For Bowel Prep) -) 17 gm PO HS [facility] Last Admin: 06/27/16 21:28 Dose: 17 gm Ranitidine HCl (Zantac -) 150 mg PO DAILY [facility] Last Admin: 06/27/16 09:49 Dose: 150 mg Silver Sulfadiazine (Silvadene -) 1 applic TP DAILY [facility] Last Admin: 06/27/16 09:50 Dose: 1 applic Sodium Chloride (Normal Saline -) 500 ml IV Q20M PRN PRN Reason: MAP<65mm Hg OR SBP <90 - Objective Vital Signs: Vital Signs Temperature 98.4 F 06/28/16 05:54 Pulse Rate 85 06/28/16 05:54 Respiratory Rate 20 06/28/16 05:54 Blood Pressure 140/57 06/28/16 05:54 O2 Sat by Pulse Oximetry (%) 99 06/27/16 22:00 Constitutional: Yes: No Distress Eyes: Yes: WNL HENT: Yes: WNL Neck: Yes: WNL Cardiovascular: Yes: WNL Respiratory: Yes: WNL Gastrointestinal: Yes: WNL Edema: Yes Edema: LLE: 1+, RLE: 1+ Peripheral Pulses WNL: Yes Integumentary: Yes: Other Wound/Incision: Yes: Dressing Dry and Intact Neurological: Yes: Pre-Existing Deficit, Unsteady Gait, Weakness ...Motor Strength: LUE, LLE, RUE, RLE Psychiatric: Yes: Other Labs: CBC, BMP 06/28/16 05:10 06/28/16 05:10 INR, PTT INR 0.99 (0.82-1.09) 06/23/16 14:30 Assessment/Plan Pt is an 80yr old man with PMHx of HTN, CAD, DM, Parkinson's disease, dementia and glaucoma. He presents to the ER from [facility] with CC of AMS and elevated glucose. In the ER pt with serum glucose 867, CK 754, lactic acid 5.787 (--> 8.563) and BUN/Cr 73/3.3. Unable to obtain history due to mental status. Pt assessed in the ER. Pt arousable but nonverbal (baseline), vital signs in chart reviewed. DKA/HYPEROSMOLAR SYNDROME : IMPROVING, BGM BETTER CONTROLLED IVF, SSI, BGM ENDOCRINE CONSULT APPRECIATED ICU ADMISSION NOW TRANSFERRING TO [facility] ACUTE RENAL FAILURE: RENAL CONSULT HOLD ANY NEPHROTOXIC MEDICATIONS IVF SEPSIS: LACTIC ACID ELEVATE BLOOD AND URINE CULTURES IV ABX STOPPED IVF CVA/DEMENTIA: BASELINE AT THIS TIME NEUROCHECKS
[2016-06-28] MEDS: RANITIDINE HCL 150 MG TABLET (FP) PO SCH (10:01)
[2016-06-28] MEDS: CARBIDOPA/LEVODOPA 25/100 TABLET (FP) PO SCH ×4 (10:01→21:59)
[2016-06-28] MEDS: HEPARIN NA (PORCINE) 5,000 UNITS/ML 1ML VIAL SQ SCH ×2 (10:02→21:59)
--- NOTE | 2016-06-28 10:20 | PN ---
Progress Note (short form) - Note Progress Note: PULMONARY/CCM Pt seen and examined in the ICU. Somnolent but arousable. Denies shortness of breath or chest pain. No fevers recorded. Last Vital Signs Temp Pulse Resp BP Pulse Ox 98.2 F 71 18 105/57 100 06/28/16 10:00 06/28/16 10:00 06/28/16 10:00 06/28/16 10:00 06/28/16 10:00 Intake & Output 06/25/16 06/26/16 06/27/16 06/28/16 23:59 23:59 23:59 23:59 Intake Total 2160 2910 2000 450 Output Total 1500 1900 2500 1500 Balance 660 1010 -500 -1050 Weight 129 lb 12.8 oz 130 lb 12.8 oz 129 lb 11.2 oz Gen: NAD at rest Heart: RRR Lung: decreased breath sounds at the bases Abd: soft, nontender Ext: no edema CBC, BMP 06/28/16 05:10 06/28/16 05:10 Active Medications Carbidopa/Levodopa (Sinemet 25/100 -) 1 each PO QID [facility] Last Admin: 06/28/16 10:01 Dose: 1 each Collagenase (Santyl -) 1 applic TP DAILY [facility] Heparin Sodium (Porcine) (Heparin -) 5,000 unit SQ BID [facility] Last Admin: 06/28/16 10:02 Dose: 5,000 unit Insulin Aspart (Novolog Vial Sliding Scale -) 0 vial SQ HS [facility] PRN Reason: Protocol Last Admin: 06/27/16 21:27 Dose: Not Given Insulin Aspart (Novolog Vial Sliding Scale -) 1 vial SQ TIDAC [facility] PRN Reason: Protocol Last Admin: 06/28/16 06:06 Dose: 12 units Insulin Detemir (Levemir Vial) 12 units SQ DAILY@0700 [facility] Last Admin: 06/28/16 06:06 Dose: 12 units Lisinopril (Prinivil) 2.5 mg PO DAILY [facility] Nifedipine (Procardia Xl -) 30 mg PO DAILY [facility] Polyethylene Glycol (Miralax (For Bowel Prep) -) 17 gm PO HS [facility] Last Admin: 06/27/16 21:28 Dose: 17 gm Ranitidine HCl (Zantac -) 150 mg PO DAILY [facility] Last Admin: 06/28/16 10:01 Dose: 150 mg Silver Sulfadiazine (Silvadene -) 1 applic TP DAILY [facility] Last Admin: 06/27/16 09:50 Dose: 1 applic A/P Hyperglycemic Hyperosmolar State resolved Altered Mental Status resolved Lactic Acidosis resolved Acute Kidney Injury improving HTN DM CAD Parkinson's Disease Dementia - PO as tolerated - glucose control - monitor urine output, creatinine - BP control - aspiration precautions - DVT prophylaxis - can monitor on floor
[2016-06-28] MEDS: LISINOPRIL 5 MG TABLET (FP) PO SCH (11:00)
[2016-06-28] MEDS: COLLAGENASE CLOSTRIDIUM HIST. 30 GRAMS TUBE TP SCH (11:00)
[2016-06-28] MEDS: NIFEdipine E.R. 30 MG TABLET (FP) PO SCH (11:29)
[2016-06-28] MEDS: DEXTROSE 5%-0.45% SALINE 1,000 ML IV SCH (11:45)
[2016-06-28] MEDS: SILVER SULFADIAZINE 1% TOP CREAM 50 GM JAR TP SCH (11:45)
--- NOTE | 2016-06-28 11:49 | PN ---
Progress Note, Physician History of Present Illness: Pt seen and examined at bedside. He has good PO intake however needs one to one feeds. - Current Medication List Current Medications: Active Medications Carbidopa/Levodopa (Sinemet 25/100 -) 1 each PO QID [facility] Last Admin: 06/28/16 10:01 Dose: 1 each Collagenase (Santyl -) 1 applic TP DAILY [facility] Heparin Sodium (Porcine) (Heparin -) 5,000 unit SQ BID [facility] Last Admin: 06/28/16 10:02 Dose: 5,000 unit Insulin Aspart (Novolog Vial Sliding Scale -) 0 vial SQ HS [facility] PRN Reason: Protocol Last Admin: 06/27/16 21:27 Dose: Not Given Insulin Aspart (Novolog Vial Sliding Scale -) 1 vial SQ TIDAC [facility] PRN Reason: Protocol Last Admin: 06/28/16 06:06 Dose: 12 units Insulin Detemir (Levemir Vial) 12 units SQ DAILY@0700 [facility] Last Admin: 06/28/16 06:06 Dose: 12 units Lisinopril (Prinivil) 2.5 mg PO DAILY [facility] Last Admin: 06/28/16 11:00 Dose: 2.5 mg Nifedipine (Procardia Xl -) 30 mg PO DAILY [facility] Last Admin: 06/28/16 11:29 Dose: 30 mg Polyethylene Glycol (Miralax (For Bowel Prep) -) 17 gm PO HS [facility] Last Admin: 06/27/16 21:28 Dose: 17 gm Ranitidine HCl (Zantac -) 150 mg PO DAILY [facility] Last Admin: 06/28/16 10:01 Dose: 150 mg Silver Sulfadiazine (Silvadene -) 1 applic TP DAILY [facility] Last Admin: 06/27/16 09:50 Dose: 1 applic - Objective Vital Signs: Vital Signs Temperature 98.2 F 06/28/16 10:00 Pulse Rate 71 06/28/16 10:00 Respiratory Rate 18 06/28/16 10:00 Blood Pressure 105/57 06/28/16 10:00 O2 Sat by Pulse Oximetry (%) 100 06/28/16 10:00 Constitutional: Yes: Calm Eyes: Yes: Conjunctiva Clear Cardiovascular: Yes: S1, S2 Respiratory: Yes: CTA Bilaterally Gastrointestinal: Yes: Soft Genitourinary: Yes: Gaviria Present Musculoskeletal: Yes: Muscle Weakness Edema: No Neurological: Yes: Pre-Existing Deficit Labs: CBC, BMP 06/28/16 05:10 06/28/16 05:10 INR, PTT INR 0.99 (0.82-1.09) 06/23/16 14:30 Assessment/Plan Current Medications Generic Name Dose Route Start Last Admin Trade Name Mike PRN Reason Stop Dose Admin Carbidopa/Levodopa 1 each 06/23/16 22:00 06/28/16 10:01 Sinemet 25/100 - PO 1 each QID [facility] Administration Collagenase 1 applic 06/28/16 10:00 06/28/16 11:00 Santyl - TP 1 applic DAILY [facility] Administration Heparin Sodium (Porcine) 5,000 unit 06/23/16 22:00 06/28/16 10:02 Heparin - SQ 5,000 unit BID [facility] Administration Insulin Aspart 0 vial 06/24/16 22:00 06/27/16 21:27 Novolog Vial Sliding Scale - SQ Not Given HS [facility] Protocol Insulin Aspart 1 vial 06/27/16 15:20 06/28/16 11:47 Novolog Vial Sliding Scale - SQ Not Given TIDAC [facility] Protocol Insulin Detemir 12 units 06/27/16 07:00 06/28/16 06:06 Levemir Vial SQ 12 units DAILY@0700 [facility] Administration Lisinopril 2.5 mg 06/28/16 10:00 06/28/16 11:00 Prinivil PO 2.5 mg DAILY [facility] Administration Nifedipine 30 mg 06/28/16 10:00 06/28/16 11:29 Procardia Xl - PO 30 mg DAILY [facility] Administration Polyethylene Glycol 17 gm 06/23/16 22:00 06/27/16 21:28 Miralax (For Bowel Prep) - PO 17 gm HS [facility] Administration Ranitidine HCl 150 mg 06/26/16 10:00 06/28/16 10:01 Zantac - PO 150 mg DAILY [facility] Administration Silver Sulfadiazine 1 applic 06/24/16 10:00 06/28/16 11:45 Silvadene - TP Not Given DAILY [facility] Impression 1. PRABHU 2. DM 3. HTN 4. rhabdomyolosis 5. dementia 6. parkinsons 7. CAD 8. likely CKD Plan - please check CK level - would resume fluids - monitor renal function - renal function has improved - d/c gaviria if not needed - pt has PRABHU on CKD - will follow pt Dr Mcmanus
[2016-06-28] MEDS: SODIUM CHLORIDE 0.45% 1,000 ML IV SCH (12:13)
--- NOTE | 2016-06-28 12:34 | PN ---
Progress Note (short form) - Note Progress Note: Called to evaluate the patient for a sacral decubitus wound. The patient is an 80yr old man with PMHx of HTN, CAD, DM, Parkinson's disease, dementia. He came to the ER from a nursing facility for altered mental status and elevated gluose level. He is non-mobile. Vital Signs Period Temp Pulse Resp BP Sys/Dumont Pulse Ox Last 24 Hr 98 F-98.4 F 70-86 18-22 99-161/52-88 99-100 PE: GEN: Alert/NAD LE: heels intact without any skin breakdown, heel covers in place from the facility. Sacrum: large wound on sacrum approx 9 by 9am. There is superficial breakdown on the right buttock with slough. No hard eschar. Left buttock has a 6x3cm area which is soft and appears unstagable in a small area. Otherwise no hard eschar with slough. CBC, BMP 06/28/16 05:10 06/28/16 05:10 Problem List - Problems (1) Decubitus ulcer of sacral region, unstageable Assessment/Plan: most areas appear to be superficial slough, although one area may be deeper it is soft. santyl has been placed on the wound with optifoam, will continue this treatment and reevaluate the wound in several days. D/w Dr. Pollard Code(s): L89.150 - PRESSURE ULCER OF SACRAL REGION, UNSTAGEABLE
--- NOTE | 2016-06-28 12:36 | PN ---
Progress Note (short form) - Note Progress Note: Awake, responsive Denies any complaints Blood sugar 334 in a.m. Apetite good Vital Signs Period Temp Pulse Resp BP Sys/Dumont Pulse Ox Last 24 Hr 98 F-98.4 F 70-86 18-22 99-161/52-88 99-100 PE; Awake, responds to verbal commands Neck: Supple, No JVD Lungs: CTA CVS: S1S2 Abd: Benign EXt: No Edema CMP Sodium 141 mmol/L (136-145) 06/28/16 05:10 Potassium 4.2 mmol/L (3.5-5.1) 06/28/16 05:10 Chloride 102 mmol/L (98-107) 06/28/16 05:10 Carbon Dioxide 28 mmol/L (21-32) 06/28/16 05:10 Anion Gap 11 (8-16) 06/28/16 05:10 BUN 24 mg/dL (7-18) H 06/28/16 05:10 Creatinine 1.6 mg/dL (0.7-1.3) H 06/28/16 05:10 Creat Clearance w eGFR 32.48 (>60) 06/25/16 04:50 POC Glucometer 334.40175 UNITS (()) 06/28/16 05:23 Random Glucose 300 mg/dL (74-106) H D 06/28/16 05:10 Hemoglobin A1c % 10.2 % (4.8-6.0) H 06/24/16 11:35 Lactic Acid 1.512 mmol/L (0.4-2.0) 06/24/16 04:20 Calcium 8.1 mg/dL (8.5-10.1) L 06/28/16 05:10 Phosphorus 1.9 mg/dL (2.5-4.9) L D 06/27/16 05:15 Magnesium 1.8 mg/dL (1.8-2.4) D 06/27/16 05:15 Total Bilirubin 0.7 mg/dL (0.2-1.0) 06/25/16 04:50 AST 90 U/L (15-37) H D 06/25/16 04:50 ALT 12 U/L (12-78) 06/25/16 04:50 Alkaline Phosphatase 74 U/L (45-117) D 06/25/16 04:50 Creatine Kinase 1562 IU/L (39-308) H D 06/26/16 05:15 Creatine Kinase Index 0.5 % (0.0-5.0) 06/26/16 05:15 CK-MB (CK-2) 7.742 ng/ml (0.5-3.6) H 06/26/16 05:15 CK-MB (CK-2) Rel Index Cancelled 06/23/16 14:30 Troponin I 0.08 ng/ml (0.00-0.05) H D 06/24/16 08:05 B-Natriuretic Peptide 463.06 pg/ml (5-450) H 06/24/16 04:00 Total Protein 5.9 g/dl (6.4-8.2) L 06/25/16 04:50 Albumin 2.8 g/dl (3.4-5.0) L 06/25/16 04:50 Current Medications Generic Name Dose Route Start Last Admin Trade Name Freq PRN Reason Stop Dose Admin Carbidopa/Levodopa 1 each 06/23/16 22:00 06/28/16 10:01 Sinemet 25/100 - PO 1 each QID VERÓNICA Administration Collagenase 1 applic 06/28/16 10:00 06/28/16 11:00 Santyl - TP 1 applic DAILY VERÓNICA Administration Heparin Sodium (Porcine) 5,000 unit 06/23/16 22:00 06/28/16 10:02 Heparin - SQ 5,000 unit BID VERÓNICA Administration Sodium Chloride 1,000 mls @ 42 mls/hr 06/28/16 12:00 06/28/16 12:13 1/2 Normal Saline IV 42 mls/hr ASDIR VERÓNICA Administration Insulin Aspart 0 vial 06/24/16 22:00 06/27/16 21:27 Novolog Vial Sliding Scale - SQ Not Given HS [facility] Protocol Insulin Aspart 1 vial 06/27/16 15:20 06/28/16 11:47 Novolog Vial Sliding Scale - SQ Not Given TIDAC [facility] Protocol Insulin Detemir 12 units 06/27/16 07:00 06/28/16 06:06 Levemir Vial SQ 12 units DAILY@0700 VERÓNICA Administration Lisinopril 2.5 mg 06/28/16 10:00 06/28/16 11:00 Prinivil PO 2.5 mg DAILY VERÓNICA Administration Nifedipine 30 mg 06/28/16 10:00 06/28/16 11:29 Procardia Xl - PO 30 mg DAILY VERÓNICA Administration Polyethylene Glycol 17 gm 06/23/16 22:00 06/27/16 21:28 Miralax (For Bowel Prep) - PO 17 gm HS VERÓNICA Administration Ranitidine HCl 150 mg 06/26/16 10:00 06/28/16 10:01 Zantac - PO 150 mg DAILY VERÓNICA Administration Silver Sulfadiazine 1 applic 06/24/16 10:00 06/28/16 11:45 Silvadene - TP Not Given DAILY VERÓNICA AP: Hyperglycemic Hyperosmolar state resolved DM: A1C 10.2 Levemir to 12 units daily Novolog coverage QACHS P.O intake good today IV hydration as necessary Parkinson's disease Dementia HTN
[2016-06-28 13:19] LABS: TROPONIN I 0.02 ng/ml (0.00-0.05)
[2016-06-28] MEDS: POLYETHYLENE GLYCOL 3350 255 GM BTL PO SCH (21:59)
[2016-06-29] MEDS: INSULIN SLIDING SCALE (NOVOLOG) 1 VIAL SQ SCH ×4 (06:31→21:06)
[2016-06-29] MEDS: INSULIN DETEMIR 100 UNITS/ML MDV SQ SCH (06:31)
--- NOTE | 2016-06-29 08:54 | PN ---
Progress Note, Physician Chief Complaint: AWAKE. COMMUNICATING DENIES CHEST PAIN OR SOB - Current Medication List Current Medications: Active Medications Carbidopa/Levodopa (Sinemet 25/100 -) 1 each PO QID [facility] Collagenase (Santyl -) 1 applic TP DAILY [facility] Last Admin: 06/28/16 11:00 Dose: 1 applic Heparin Sodium (Porcine) (Heparin -) 5,000 unit SQ BID [facility] Sodium Chloride (1/2 Normal Saline) 1,000 mls @ 42 mls/hr IV ASDIR [facility] Last Admin: 06/28/16 12:13 Dose: 42 mls/hr Insulin Aspart (Novolog Vial Sliding Scale -) 0 vial SQ HS [facility] PRN Reason: Protocol Last Admin: 06/28/16 22:21 Dose: Not Given Insulin Aspart (Novolog Vial Sliding Scale -) 1 vial SQ TIDAC [facility] PRN Reason: Protocol Last Admin: 06/29/16 06:31 Dose: 8 units Insulin Detemir (Levemir Vial) 12 units SQ DAILY@0700 [facility] Last Admin: 06/29/16 06:31 Dose: 12 units Lisinopril (Prinivil) 2.5 mg PO DAILY [facility] Last Admin: 06/28/16 11:00 Dose: 2.5 mg Nifedipine (Procardia Xl -) 30 mg PO DAILY [facility] Last Admin: 06/28/16 11:29 Dose: 30 mg Polyethylene Glycol (Miralax (For Daily Use) -) 17 gm PO [facility] Ranitidine HCl (Zantac -) 150 mg PO DAILY [facility] Last Admin: 06/28/16 10:01 Dose: 150 mg - Objective Vital Signs: Vital Signs Temperature 98.4 F 06/29/16 06:00 Pulse Rate 68 06/29/16 08:00 Respiratory Rate 15 06/29/16 08:00 Blood Pressure 125/60 06/29/16 08:00 O2 Sat by Pulse Oximetry (%) 100 06/28/16 22:00 Constitutional: Yes: Mild Distress Eyes: Yes: WNL HENT: Yes: WNL Neck: Yes: WNL Cardiovascular: Yes: WNL Respiratory: Yes: WNL Gastrointestinal: Yes: WNL Genitourinary: Yes: WNL, Incontinence Musculoskeletal: Yes: Muscle Weakness Extremities: Yes: WNL Edema: No Peripheral Pulses WNL: Yes Integumentary: Yes: WNL, Pressure Ulcer, Rash (SACRAL ULCER NECROTIC) Wound/Incision: Yes: Dressing Dry and Intact Neurological: Yes: Pre-Existing Deficit, Unsteady Gait, Weakness Psychiatric: Yes: Other Labs: CBC, BMP 06/28/16 05:10 06/28/16 05:10 INR, PTT INR 0.99 (0.82-1.09) 06/23/16 14:30 Problem List - Problems (1) Decubitus ulcer of sacral region, unstageable Code(s): L89.150 - PRESSURE ULCER OF SACRAL REGION, UNSTAGEABLE (2) Dehydration Code(s): E86.0 - DEHYDRATION (3) Hyperosmolar nonketotic coma in diabetes Code(s): E11.01 - TYPE 2 DIABETES MELLITUS WITH HYPEROSMOLARITY WITH COMA (4) Parkinson disease Code(s): G20 - PARKINSON'S DISEASE Assessment/Plan SURGICAL EVAL OF SACRAL ULCER LABS REVIEWED BETTER GLUCOSE CONTROL EATING? CHECK INTAKE WITH STAFF
--- NOTE | 2016-06-29 09:00 | CONSULT ---
Consult - Past Medical History SET UP OPERATOR: Yes: Alzheimer's Cardio/Vascular: Yes: HTN Pulmonary: Yes: COPD Endocrine: Yes: Diabetes Mellitus - Smoking History Smoking history: Unknown if ever smoked Have you smoked in the past 12 months: No Home Medications - Allergies Allergies/Adverse Reactions: Allergies Allergy/AdvReac Type Severity Reaction Status Date / Time No Known Allergies Allergy Verified 06/23/16 16:14 - Home Medications Home Medications: Ambulatory Orders Baclofen [Lioresal -] 10 mg PO BID 06/23/16 Carbidopa/Levodopa [Carbidopa-Levodopa 25-100 Tab] 1 each PO QID 06/23/16 Insulin (Novolog) [Novolog] 8 units SQ HS 06/23/16 Insulin Aspart [Novolog] 100 unit SQ ACHS 06/23/16 Lisinopril [Prinivil] 20 mg PO DAILY 06/23/16 Nifedipine ER [Procardia Xl -] 60 mg PO DAILY 06/23/16 Pantoprazole Sodium [Protonix] 40 mg PO DAILY 06/23/16 Polyethylene Glycol 3350 [Miralax (For Bowel Prep) -] 17 gm PO HS 06/23/16 Silver Sulfadiazine [Silvadene] 1 applic TP DAILY 06/23/16 Family Disease History - Family Disease History Family Disease History: Diabetes: Daughter Physical Exam Vital Signs: Vital Signs Temperature 98.4 F 06/29/16 06:00 Pulse Rate 68 06/29/16 08:00 Respiratory Rate 15 06/29/16 08:00 Blood Pressure 125/60 06/29/16 08:00 O2 Sat by Pulse Oximetry (%) 100 06/28/16 22:00 Labs: CBC, BMP 06/28/16 05:10 06/28/16 05:10 Assessment/Plan Vascular Surgery Pt is an 80yr old man with PMHx of HTN, CAD, DM, Parkinson's disease, dementia and glaucoma. He presents to the ER from [facility] with CC of AMS and elevated glucose. In the ER pt with serum glucose 867, CK 754, lactic acid 5.787 (--> 8.563) and BUN/Cr 73/3.3. Unable to obtain history due to mental status. Pt assessed in the ER. Pt arousable but nonverbal (baseline), vital signs in chart reviewed. History Source: Medical Record, Transfer Record Limitations to Obtaining History: Clinical Condition, Dementia, Physical Impairment - Past Medical History SET UP OPERATOR: Yes: Alzheimer's Cardiovascular: Yes: HTN Pulmonary: Yes: COPD Endocrine: Yes: Diabetes Mellitus - Advance Directives Advance Directives: Yes: DNR - Smoking History Smoking history: Unknown if ever smoked Have you smoked in the past 12 months: No Home Medications - Allergies Allergies/Adverse Reactions: Allergies Allergy/AdvReac Type Severity Reaction Status Date / Time No Known Allergies Allergy Verified 06/23/16 16:14 - Home Medications Home Medications: Ambulatory Orders Baclofen [Lioresal -] 10 mg PO BID 06/23/16 Carbidopa/Levodopa [Carbidopa-Levodopa 25-100 Tab] 1 each PO QID 06/23/16 Insulin (Novolog) [Novolog] 8 units SQ HS 06/23/16 Insulin Aspart [Novolog] 100 unit SQ ACHS 06/23/16 Lisinopril [Prinivil] 20 mg PO DAILY 06/23/16 Nifedipine ER [Procardia Xl -] 60 mg PO DAILY 06/23/16 Pantoprazole Sodium [Protonix] 40 mg PO DAILY 06/23/16 Polyethylene Glycol 3350 [Miralax (For Bowel Prep) -] 17 gm PO HS 06/23/16 Silver Sulfadiazine [Silvadene] 1 applic TP DAILY 06/23/16 PE head - NC/AT Lung - CTA Heart - RRR abd - soft,nt,nd ext - warm,pink Sacrum -- Stage 2 ulcer. clean, pink. soft eschar. A/P STage 2 sacral ulcer 1. Turn and position. 2. offload 3. santyl to sacrum daily. Thanks for the consult.
--- NOTE | 2016-06-29 09:01 | DS ---
Physical Examination Vital Signs: Vital Signs Temperature 98.4 F 06/29/16 06:00 Pulse Rate 68 06/29/16 08:00 Respiratory Rate 15 06/29/16 08:00 Blood Pressure 125/60 06/29/16 08:00 O2 Sat by Pulse Oximetry (%) 100 06/28/16 22:00 Findings/Remarks: see progress notes Labs: CBC, BMP 06/28/16 05:10 06/28/16 05:10 Discharge Summary Reason For Visit: HYPEROSMOLAR NONKETOTIC COMA IN DIABETES Current Active Problems Decubitus ulcer of sacral region, unstageable (Acute) Dehydration (Acute) Hyperglycemia (Acute) Hyperosmolar nonketotic coma in diabetes (Acute) Parkinson disease (Acute) Procedures: Principal: head CT Hospital Course: admitted hyperosmolar state/hyperglycemia, ivf given, insuling, iv abx, sacral ulcer bolivar Condition: Critical - Instructions Diet, Activity, Other Instructions: soft ada Referrals: Franky Carranza [Primary Care Provider] - Disposition: [facility]USTODIAL [facility]ACILITY - Home Medications Comprehensive Discharge Medication List: Ambulatory Orders Baclofen [Lioresal -] 10 mg PO BID 06/23/16 Carbidopa/Levodopa [Carbidopa-Levodopa 25-100 Tab] 1 each PO QID 06/23/16 Insulin (Novolog) [Novolog -] 8 units SQ HS 06/23/16 Insulin Aspart [Novolog] 100 unit SQ ACHS 06/23/16 Polyethylene Glycol 3350 [Miralax 255 gm Btl -] 17 gm PO HS 06/23/16 Silver Sulfadiazine [Silvadene] 1 applic TP DAILY 06/23/16 Collagenase Clostridium Hist. [Santyl -] 1 applic TP DAILY tube 06/29/16 Heparin - 5,000 unit SQ BID vial 06/29/16 Insulin (Levemir) [Levemir Vial] 12 units SQ DAILY@0700 ml 06/29/16 Insulin Sliding Scale [Novolog Vial Sliding Scale -] 0 vial SQ HS units Insulin Sliding Scale [Novolog Vial Sliding Scale -] 1 vial SQ TIDAC units 09/10 Lisinopril [Prinivil] 2.5 mg PO DAILY tablet 06/29/16 Nifedipine ER [Procardia XL -] 30 mg PO DAILY tab.er.24 06/29/16 Polyethylene Glycol 3350 [Miralax 119 gm Btl -] 17 gm PO HS bottle 06/29/16 Ranitidine [Zantac -] 150 mg PO DAILY tablet 06/29/16
[2016-06-29] MEDS: HEPARIN NA (PORCINE) 5,000 UNITS/ML 1ML VIAL SQ SCH ×2 (09:40→21:02)
[2016-06-29] MEDS: LISINOPRIL 5 MG TABLET (FP) PO SCH (09:40)
[2016-06-29] MEDS: NIFEdipine E.R. 30 MG TABLET (FP) PO SCH (09:41)
[2016-06-29] MEDS: RANITIDINE HCL 150 MG TABLET (FP) PO SCH (09:42)
[2016-06-29] MEDS: CARBIDOPA/LEVODOPA 25/100 TABLET (FP) PO SCH ×4 (09:42→21:52)
--- NOTE | 2016-06-29 11:15 | PN ---
Progress Note, Physician History of Present Illness: lying in bed awake no issues overnight - Current Medication List Current Medications: Active Medications Carbidopa/Levodopa (Sinemet 25/100 -) 1 each PO QID [facility] Last Admin: 06/29/16 09:42 Dose: 1 each Collagenase (Santyl -) 1 applic TP DAILY [facility] Last Admin: 06/28/16 11:00 Dose: 1 applic Heparin Sodium (Porcine) (Heparin -) 5,000 unit SQ BID [facility] Last Admin: 06/29/16 09:40 Dose: 5,000 unit Sodium Chloride (1/2 Normal Saline) 1,000 mls @ 42 mls/hr IV ASDIR [facility] Last Admin: 06/28/16 12:13 Dose: 42 mls/hr Insulin Aspart (Novolog Vial Sliding Scale -) 0 vial SQ [facility] PRN Reason: Protocol Last Admin: 06/28/16 22:21 Dose: Not Given Insulin Aspart (Novolog Vial Sliding Scale -) 1 vial SQ TIDAC [facility] PRN Reason: Protocol Last Admin: 06/29/16 06:31 Dose: 8 units Insulin Detemir (Levemir Vial) 12 units SQ DAILY@0700 [facility] Last Admin: 06/29/16 06:31 Dose: 12 units Lisinopril (Prinivil) 2.5 mg PO DAILY [facility] Last Admin: 06/29/16 09:40 Dose: 2.5 mg Nifedipine (Procardia Xl -) 30 mg PO DAILY [facility] Last Admin: 06/29/16 09:41 Dose: 30 mg Polyethylene Glycol (Miralax (For Daily Use) -) 17 gm PO [facility] Ranitidine HCl (Zantac -) 150 mg PO DAILY [facility] Last Admin: 06/29/16 09:42 Dose: 150 mg - Objective Vital Signs: Vital Signs Temperature 98.4 F 06/29/16 06:00 Pulse Rate 68 06/29/16 08:00 Respiratory Rate 15 06/29/16 08:00 Blood Pressure 125/60 06/29/16 08:00 O2 Sat by Pulse Oximetry (%) 100 06/28/16 22:00 Constitutional: Yes: Thin Neck: Yes: WNL Cardiovascular: Yes: RRR S1 S2 Respiratory: Yes: CTAB Gastrointestinal: Yes: soft Normal Bowel Sounds Edema: No Integumentary: Yes: Other (appears dry) Neurological: Yes: awake alert answers yes/no to questions Labs: CBC, BMP 06/28/16 05:10 06/28/16 05:10 INR, PTT INR 0.99 (0.82-1.09) 06/23/16 14:30 Assessment/Plan Pt is an 80yr old man with PMHx of HTN, CAD, DM, Parkinson's disease, dementia and glaucoma. admitted to the ICU for management of uncontrolled glucose, lactic acidosis and ams. likely hyperglycemic hyperosmolar state Pulm: doing well on room air ID: Lactic acidosis. WBC wnl, afebrile -f/u cultures -Will monitor off antibiotics elevated lactic acid resolved ID consult appreciated Neuro: AMS-resolved dementia now at baseline Endo: Uncontrolled glucose/HHS -BGM -Glycemic control endocrinology consult appreciated Renal: Elevated BUN/Cr, likely chronic. Baseline unknown Outpt follow up Cardio BP control control HR Skin: -Continue heel lifts -Wound care Prophylactic -DVT -Continue home PPI transfer to floor for D/C today to senior living
--- NOTE | 2016-06-29 11:24 | PN ---
Teaching Attending Note Name of Resident: Junior Reardon ATTENDING PHYSICIAN STATEMENT I saw and evaluated the patient. I reviewed the resident's note and discussed the case with the resident. I agree with the resident's findings and plan as documented. SUBJECTIVE: Pt seen and examined in the ICU. No events overnight. No fevers recorded. OBJECTIVE: Last Vital Signs Temp Pulse Resp BP Pulse Ox 98.4 F 68 15 125/60 100 06/29/16 06:00 06/29/16 08:00 06/29/16 08:00 06/29/16 08:00 06/28/16 22:00 Intake & Output 06/26/16 06/27/16 06/28/16 06/29/16 23:59 23:59 23:59 23:59 Intake Total 2910 2000 1744 944 Output Total 1900 2500 3000 850 Balance 1010 500 -1256 94 Weight 129 lb 12.8 oz 130 lb 12.8 oz 129 lb 11.2 oz 127 lb 6.835 oz Gen: NAD at rest Heart: RRR Lung: decreased breath sounds at the bases Abd: soft, nontender Ext: no edema CBC, BMP 06/28/16 05:10 06/28/16 05:10 Active Medications Carbidopa/Levodopa (Sinemet 25/100 -) 1 each PO QID [facility] Last Admin: 06/29/16 09:42 Dose: 1 each Collagenase (Santyl -) 1 applic TP DAILY [facility] Last Admin: 06/28/16 11:00 Dose: 1 applic Heparin Sodium (Porcine) (Heparin -) 5,000 unit SQ BID [facility] Last Admin: 06/29/16 09:40 Dose: 5,000 unit Sodium Chloride (1/2 Normal Saline) 1,000 mls @ 42 mls/hr IV ASDIR [facility] Last Admin: 06/28/16 12:13 Dose: 42 mls/hr Insulin Aspart (Novolog Vial Sliding Scale -) 0 vial SQ HS [facility] PRN Reason: Protocol Last Admin: 06/28/16 22:21 Dose: Not Given Insulin Aspart (Novolog Vial Sliding Scale -) 1 vial SQ TIDAC [facility] PRN Reason: Protocol Last Admin: 06/29/16 06:31 Dose: 8 units Insulin Detemir (Levemir Vial) 12 units SQ DAILY@0700 [facility] Last Admin: 06/29/16 06:31 Dose: 12 units Lisinopril (Prinivil) 2.5 mg PO DAILY [facility] Last Admin: 06/29/16 09:40 Dose: 2.5 mg Nifedipine (Procardia Xl -) 30 mg PO DAILY [facility] Last Admin: 06/29/16 09:41 Dose: 30 mg Polyethylene Glycol (Miralax (For Daily Use) -) 17 gm PO [facility] Ranitidine HCl (Zantac -) 150 mg PO DAILY [facility] Last Admin: 06/29/16 09:42 Dose: 150 mg ASSESSMENT AND PLAN: Hyperglycemic Hyperosmolar State resolved Altered Mental Status resolved Lactic Acidosis resolved Acute Kidney Injury improving HTN DM CAD Parkinson's Disease Dementia - PO as tolerated - glucose control - monitor urine output, creatinine - BP control - aspiration precautions - DVT prophylaxis - can monitor on floor - d/c planning
[2016-06-29] MEDS: COLLAGENASE CLOSTRIDIUM HIST. 30 GRAMS TUBE TP SCH (11:29)
--- NOTE | 2016-06-29 12:08 | PN ---
Progress Note, Physician History of Present Illness: Pt seen and examined at bedside. He is awake and alert. He is tolerating diet. He pulled out his IV today. - Current Medication List Current Medications: Active Medications Carbidopa/Levodopa (Sinemet 25/100 -) 1 each PO QID [facility] Last Admin: 06/29/16 09:42 Dose: 1 each Collagenase (Santyl -) 1 applic TP DAILY [facility] Last Admin: 06/29/16 11:29 Dose: 1 applic Heparin Sodium (Porcine) (Heparin -) 5,000 unit SQ BID [facility] Last Admin: 06/29/16 09:40 Dose: 5,000 unit Sodium Chloride (1/2 Normal Saline) 1,000 mls @ 42 mls/hr IV ASDIR [facility] Last Admin: 06/28/16 12:13 Dose: 42 mls/hr Insulin Aspart (Novolog Vial Sliding Scale -) 0 vial SQ [facility] PRN Reason: Protocol Last Admin: 06/28/16 22:21 Dose: Not Given Insulin Aspart (Novolog Vial Sliding Scale -) 1 vial SQ TIDAC [facility] PRN Reason: Protocol Last Admin: 06/29/16 06:31 Dose: 8 units Insulin Detemir (Levemir Vial) 12 units SQ DAILY@0700 [facility] Last Admin: 06/29/16 06:31 Dose: 12 units Lisinopril (Prinivil) 2.5 mg PO DAILY [facility] Last Admin: 06/29/16 09:40 Dose: 2.5 mg Nifedipine (Procardia Xl -) 30 mg PO DAILY [facility] Last Admin: 06/29/16 09:41 Dose: 30 mg Polyethylene Glycol (Miralax (For Daily Use) -) 17 gm PO [facility] Ranitidine HCl (Zantac -) 150 mg PO DAILY [facility] Last Admin: 06/29/16 09:42 Dose: 150 mg - Objective Vital Signs: Vital Signs Temperature 98.3 F 06/29/16 10:00 Pulse Rate 74 06/29/16 10:00 Respiratory Rate 16 06/29/16 10:00 Blood Pressure 123/74 06/29/16 10:00 O2 Sat by Pulse Oximetry (%) 100 06/28/16 22:00 Constitutional: Yes: Calm Eyes: Yes: Conjunctiva Clear HENT: Yes: Atraumatic Neck: Yes: Supple Cardiovascular: Yes: S1, S2 Respiratory: Yes: CTA Bilaterally Gastrointestinal: Yes: Soft Genitourinary: Yes: WNL Musculoskeletal: Yes: Muscle Weakness Edema: No Neurological: Yes: Oriented, Pre-Existing Deficit Labs: CBC, BMP 06/28/16 05:10 06/28/16 05:10 INR, PTT INR 0.99 (0.82-1.09) 06/23/16 14:30 Assessment/Plan Current Medications Generic Name Dose Route Start Last Admin Trade Name Freq PRN Reason Stop Dose Admin Carbidopa/Levodopa 1 each 06/29/16 10:00 06/29/16 09:42 Sinemet 25/100 - PO 1 each QID VERÓNICA Administration Collagenase 1 applic 06/28/16 10:00 06/29/16 11:29 Santyl - TP 1 applic DAILY VERÓNICA Administration Heparin Sodium (Porcine) 5,000 unit 06/29/16 10:00 06/29/16 09:40 Heparin - SQ 5,000 unit BID [facility]NICA Administration Sodium Chloride 1,000 mls @ 42 mls/hr 06/28/16 12:00 06/28/16 12:13 1/2 Normal Saline IV 42 mls/hr ASDIR [facility]ÓNICA Administration Insulin Aspart 0 vial 06/24/16 22:00 06/28/16 22:21 Novolog Vial Sliding Scale - SQ Not Given HS [facility] Protocol Insulin Aspart 1 vial 06/27/16 15:20 06/29/16 06:31 Novolog Vial Sliding Scale - SQ 8 units TIDAC [facility] Administration Protocol Insulin Detemir 12 units 06/27/16 07:00 06/29/16 06:31 Levemir Vial SQ 12 units DAILY@0700 [facility]NICA Administration Lisinopril 2.5 mg 06/28/16 10:00 06/29/16 09:40 Prinivil PO 2.5 mg DAILY [facility] Administration Nifedipine 30 mg 06/28/16 10:00 06/29/16 09:41 Procardia Xl - PO 30 mg DAILY [facility] Administration Polyethylene Glycol 17 gm 06/29/16 22:00 Miralax (For Daily Use) - PO HS [facility] Ranitidine HCl 150 mg 06/26/16 10:00 06/29/16 09:42 Zantac - PO 150 mg DAILY VER[facility]NICA Administration Laboratory Tests 06/29/16 05:00 Creatine Kinase 298 D Impression 1. PRABHU 2. DM 3. HTN 4. rhabdomyolosis 5. dementia 6. parkinsons 7. CAD 8. likely CKD Plan - ck level has returned to normal range - encourage PO intake and hydration - will need outpt follow up - check bmp - can see in office or NH - pt has PRABHU on CKD, which has been resolving - will follow pt Dr Mcmanus
[2016-06-29] MEDS: SODIUM CHLORIDE 0.45% 1,000 ML IV SCH (15:58)
[2016-06-29] MEDS ORDERED: POLYETHYLENE GLYCOL 3350 119 GM BTL PO SCH (22:00)
[2016-06-30] MEDS: INSULIN SLIDING SCALE (NOVOLOG) 1 VIAL SQ SCH ×3 (06:26→18:23)
[2016-06-30] MEDS: INSULIN DETEMIR 100 UNITS/ML MDV SQ SCH (06:26)
--- NOTE | 2016-06-30 09:09 | PN ---
Progress Note (short form) - Note Progress Note: AWAKE , ALERT H/O DEMENTIA PATIENT AT BASELINE LABS AND VS REVIEWED DISCHARGE TO [facility] Problem List - Problems (1) Decubitus ulcer of sacral region, unstageable Code(s): L89.150 - PRESSURE ULCER OF SACRAL REGION, UNSTAGEABLE (2) Dehydration Code(s): E86.0 - DEHYDRATION (3) Hyperosmolar nonketotic coma in diabetes Code(s): E11.01 - TYPE 2 DIABETES MELLITUS WITH HYPEROSMOLARITY WITH COMA (4) Parkinson disease Code(s): G20 - PARKINSON'S DISEASE
[2016-06-30] MEDS: COLLAGENASE CLOSTRIDIUM HIST. 30 GRAMS TUBE TP SCH (10:29)
[2016-06-30] MEDS ORDERED: PT OWN MED DRAWER 7, Y5N ONE ×3 (11:10→17:15)
[2016-06-30] MEDS: LISINOPRIL 5 MG TABLET (FP) PO SCH (11:11)
[2016-06-30] MEDS: HEPARIN NA (PORCINE) 5,000 UNITS/ML 1ML VIAL SQ SCH (11:11)
[2016-06-30] MEDS: CARBIDOPA/LEVODOPA 25/100 TABLET (FP) PO SCH ×3 (11:11→17:17)
[2016-06-30] MEDS: RANITIDINE HCL 150 MG TABLET (FP) PO SCH (11:12)
[2016-06-30] MEDS: NIFEdipine E.R. 30 MG TABLET (FP) PO SCH (11:12)
[2016-06-30] MEDS ORDERED: traMADol HCL 50 MG TABLET PO PRN (13:53)
[2016-06-30] MEDS: SODIUM CHLORIDE 0.45% 1,000 ML IV SCH (14:30)
[2016-06-30 14:43] VITALS: BP 126/70; PULSE 81; TEMP 98.8
--- NOTE | 2016-06-30 15:18 | PN ---
Progress Note (short form) - Note Progress Note: PULMONARY Denies shortness of breath or chest pain. No fevers recorded. Last Vital Signs Temp Pulse Resp BP Pulse Ox 98.8 F 81 20 126/70 100 06/30/16 14:40 06/30/16 14:40 06/30/16 14:40 06/30/16 14:40 06/29/16 20:56 Gen: NAD at rest Heart: RRR Lung: decreased breath sounds at the bases Abd: soft, nontender Ext: no edema CBC, BMP 06/28/16 05:10 06/28/16 05:10 Active Medications Carbidopa/Levodopa (Sinemet 25/100 -) 1 each PO QID [facility] Last Admin: 06/30/16 14:29 Dose: 1 each Collagenase (Santyl -) 1 applic TP DAILY [facility] Last Admin: 06/30/16 10:29 Dose: 1 applic Heparin Sodium (Porcine) (Heparin -) 5,000 unit SQ BID [facility] Last Admin: 06/30/16 11:11 Dose: 5,000 unit Sodium Chloride (1/2 Normal Saline) 1,000 mls @ 42 mls/hr IV ASDIR [facility] Last Admin: 06/30/16 14:30 Dose: 42 mls/hr Insulin Aspart (Novolog Vial Sliding Scale -) 0 vial SQ [facility] PRN Reason: Protocol Last Admin: 06/29/16 21:06 Dose: 2 units Insulin Aspart (Novolog Vial Sliding Scale -) 1 vial SQ TIDAC [facility] PRN Reason: Protocol Last Admin: 06/30/16 11:29 Dose: 4 units Insulin Detemir (Levemir Vial) 12 units SQ DAILY@0700 [facility] Last Admin: 06/30/16 06:26 Dose: 12 units Lisinopril (Prinivil) 2.5 mg PO DAILY [facility] Last Admin: 06/30/16 11:11 Dose: 2.5 mg Nifedipine (Procardia Xl -) 30 mg PO DAILY [facility] Last Admin: 06/30/16 11:12 Dose: 30 mg Polyethylene Glycol (Miralax (For Daily Use) -) 17 gm PO HS [facility] Last Admin: 06/29/16 21:52 Dose: 17 gm Ranitidine HCl (Zantac -) 150 mg PO DAILY [facility] Last Admin: 06/30/16 11:12 Dose: 150 mg Tramadol HCl (Ultram -) 50 mg PO Q8H PRN Last Admin: 06/30/16 14:29 Dose: 50 mg A/P Hyperglycemic Hyperosmolar State resolved Altered Mental Status resolved Lactic Acidosis resolved Acute Kidney Injury improving HTN DM CAD Parkinson's Disease Dementia - PO as tolerated - glucose control - monitor urine output, creatinine - BP control - aspiration precautions - DVT prophylaxis
--- NOTE | 2016-06-30 17:23 | PN ---
Progress Note, Physician History of Present Illness: Pt seen and examined at bedside. He appears comfortable. - Current Medication List Current Medications: Active Medications Carbidopa/Levodopa (Sinemet 25/100 -) 1 each PO QID [facility] Last Admin: 06/30/16 14:29 Dose: 1 each Collagenase (Santyl -) 1 applic TP DAILY [facility] Last Admin: 06/30/16 10:29 Dose: 1 applic Heparin Sodium (Porcine) (Heparin -) 5,000 unit SQ BID [facility] Last Admin: 06/30/16 11:11 Dose: 5,000 unit Sodium Chloride (1/2 Normal Saline) 1,000 mls @ 42 mls/hr IV ASDIR [facility] Last Admin: 06/30/16 14:30 Dose: 42 mls/hr Insulin Aspart (Novolog Vial Sliding Scale -) 0 vial SQ HS [facility] PRN Reason: Protocol Last Admin: 06/29/16 21:06 Dose: 2 units Insulin Aspart (Novolog Vial Sliding Scale -) 1 vial SQ TIDAC [facility] PRN Reason: Protocol Last Admin: 06/30/16 11:29 Dose: 4 units Insulin Detemir (Levemir Vial) 12 units SQ DAILY@0700 [facility] Last Admin: 06/30/16 06:26 Dose: 12 units Lisinopril (Prinivil) 2.5 mg PO DAILY [facility] Last Admin: 06/30/16 11:11 Dose: 2.5 mg Nifedipine (Procardia Xl -) 30 mg PO DAILY [facility] Last Admin: 06/30/16 11:12 Dose: 30 mg Polyethylene Glycol (Miralax (For Daily Use) -) 17 gm PO HS [facility] Last Admin: 06/29/16 21:52 Dose: 17 gm Ranitidine HCl (Zantac -) 150 mg PO DAILY [facility] Last Admin: 06/30/16 11:12 Dose: 150 mg Tramadol HCl (Ultram -) 50 mg PO Q8H PRN Last Admin: 06/30/16 14:29 Dose: 50 mg - Objective Vital Signs: Vital Signs Temperature 98.8 F 06/30/16 14:40 Pulse Rate 81 06/30/16 14:40 Respiratory Rate 20 06/30/16 14:40 Blood Pressure 126/70 06/30/16 14:40 O2 Sat by Pulse Oximetry (%) 97 06/30/16 09:00 Constitutional: Yes: Calm Eyes: Yes: Conjunctiva Clear HENT: Yes: Atraumatic Neck: Yes: Supple Cardiovascular: Yes: S1, S2 Gastrointestinal: Yes: Normal Bowel Sounds, Soft Genitourinary: Yes: WNL Musculoskeletal: Yes: Muscle Weakness Edema: No Neurological: Yes: Pre-Existing Deficit Labs: CBC, BMP 06/28/16 05:10 06/28/16 05:10 INR, PTT INR 0.99 (0.82-1.09) 06/23/16 14:30 Assessment/Plan Current Medications Generic Name Dose Route Start Last Admin Trade Name Freq PRN Reason Stop Dose Admin Carbidopa/Levodopa 1 each 06/29/16 10:00 06/30/16 14:29 Sinemet 25/100 - PO 1 each QID [facility] Administration Collagenase 1 applic 06/28/16 10:00 06/30/16 10:29 Santyl - TP 1 applic DAILY [facility] Administration Heparin Sodium (Porcine) 5,000 unit 06/29/16 10:00 06/30/16 11:11 Heparin - SQ 5,000 unit BID [facility] Administration Sodium Chloride 1,000 mls @ 42 mls/hr 06/28/16 12:00 06/30/16 14:30 1/2 Normal Saline IV 42 mls/hr ASDIR [facility]NICA Administration Insulin Aspart 0 vial 06/24/16 22:00 06/29/16 21:06 Novolog Vial Sliding Scale - SQ 2 units HS [facility] Administration Protocol Insulin Aspart 1 vial 06/27/16 15:20 06/30/16 11:29 Novolog Vial Sliding Scale - SQ 4 units TIDAC [facility] Administration Protocol Insulin Detemir 12 units 06/27/16 07:00 06/30/16 06:26 Levemir Vial SQ 12 units DAILY@0700 [facility] Administration Lisinopril 2.5 mg 06/28/16 10:00 06/30/16 11:11 Prinivil PO 2.5 mg DAILY [facility] Administration Nifedipine 30 mg 06/28/16 10:00 06/30/16 11:12 Procardia Xl - PO 30 mg DAILY [facility] Administration Polyethylene Glycol 17 gm 06/29/16 22:00 06/29/16 21:52 Miralax (For Daily Use) - PO 17 gm HS [facility] Administration Ranitidine HCl 150 mg 06/26/16 10:00 06/30/16 11:12 Zantac - PO 150 mg DAILY [facility] Administration Tramadol HCl 50 mg 06/30/16 13:53 06/30/16 14:29 Ultram - PO 50 mg Q8H PRN Administration Impression 1. PRABHU 2. DM 3. HTN 4. rhabdomyolosis 5. dementia 6. parkinsons 7. CAD 8. likely CKD Plan - no new labs - check bmp on [facility] - pt to be discharged today - ck level has returned to normal range - encourage PO intake and hydration - will need outpt follow up - pt has PRABHU on CKD, which has been resolving Dr Mcmanus
== END 2016-06-30 18:13 | DRG 638 ==
LOC: JER 13:53 → JERBED 17:54 → JICU 06-24 03:26 → J7W 06-29 16:34
PROVIDERS: ADMIT Family Medicine; ATTEND Family Medicine
DX: E11.00 Type 2 diabetes mellitus with hyperosmolarity without nonketotic hyperglycemic-hyperosmolar coma (NKHHC) (principal); N17.9 Acute kidney failure, unspecified; E87.2 Acidosis; E87.0 Hyperosmolality and hypernatremia; M62.82 Rhabdomyolysis; I25.10 Atherosclerotic heart disease of native coronary artery without angina pectoris; H40.89 Other specified glaucoma; G20 Parkinson's disease; J44.9 Chronic obstructive pulmonary disease, unspecified; G30.9 Alzheimer's disease, unspecified; F02.80 Dementia in other diseases classified elsewhere, unspecified severity, without behavioral disturbance, psychotic disturbance, mood disturbance, and anxiety; E86.0 Dehydration; L89.152 Pressure ulcer of sacral region, stage 2; I12.9 Hypertensive chronic kidney disease with stage 1 through stage 4 chronic kidney disease, or unspecified chronic kidney disease; N18.9 Chronic kidney disease, unspecified; Z66 Do not resuscitate
CPT/HCPCS: 36415; 36600; 70450-TC; 71010-TC; 76775-TC; 76856-TC; 80048; 80053; 81003; 81015; 82009; 82550; 82553; 82803; 83036; 83605; 83735; 83880; 84100; 84484; 85025; 85027; 85610; 85730; 86850; 86900; 86901; 87040; 87086; 87254; 87804; 87899; 90670; 93005; 93010; 97163-GP; 99285-25; G0008; J0475; J1644; Q2037